=== PATIENT | female | born 1950 | race Caucasian/White ===

== ENCOUNTER → 2016-08-03 | Outpatient (CLI) | payer OTHER ==
[2016-08-03 13:31] LABS: BASO % 0.4 %; BASO ABS # 0.03 K/uL (0-0.2); COMPLETE YES; EOS % 2.5 %; HEMATOCRIT 41.7 % (37-47); IG% 0.3 %; LYMPH % 30.4 %; LYMPH ABS # 2.35 K/uL (1.2-3.4); MEAN CELL VOLUME 86.9 fL (80-100); MEAN CORPUSCULAR HGB CONC 33.3 g/dl (32-36); MEAN PLATELET VOLUME 8.7 fL (7.4-10.4); MONO % 5.6 %; NEUT % 60.8 %; PLATELET COUNT 254 K/uL (130-400); WHITE BLOOD COUNT 7.72 K/uL (4.8-10.8)
[2016-08-03 13:49] LABS: ALT/SGPT 21 U/L (12-78); AST/SGOT 11 U/L (15-37); BLOOD UREA NITROGEN 13 mg/dl (7-18); BUN/CREATININE RATIO 21.7 (10-20); CALCIUM 9.3 mg/dl (8.5-10.1); CARBON DIOXIDE 30 mmol/L (21-32); CHLORIDE 101 mmol/L (98-107); CHOLESTEROL 219 mg/dl (0-200); CREATININE 0.58 mg/dl (0.60-1.20); GLUCOSE 107 mg/dl (70-99); POTASSIUM 3.9 mmol/L (3.5-5.1); SODIUM 136 mmol/L (136-145)
[2016-08-03 13:58] LABS: ALKALINE PHOSPHATASE 93 U/L (45-117); CHOLESTEROL/HDL RATIO 4.8; HDL CHOLESTEROL 46 mg/dl; LDL CHOLESTEROL CALCULATED 147 mg/dl; TRIGLYCERIDES 128 mg/dl (0-150); VERY LOW DENSITY LIPOPROT CALC 26 mg/dl
== END | disposition home or self-care (01) ==
LOC: C.LABMFLN 11:44
PROVIDERS: ATTEND Family Medicine
DX: I10 Essential (primary) hypertension (principal); E78.5 Hyperlipidemia, unspecified; E03.9 Hypothyroidism, unspecified

== ENCOUNTER → 2017-08-19 | Outpatient (CLI) | payer OTHER ==
[2017-08-19 18:04] LABS: ALBUMIN 3.6 gm/dl (3.4-5.0); BLOOD UREA NITROGEN 15 mg/dl (7-18); CALCIUM 9.4 mg/dl (8.5-10.1); CARBON DIOXIDE 30 mmol/L (21-32); CHOLESTEROL 217 mg/dl (0-200); CREATININE 0.62 mg/dl (0.60-1.20); GLUCOSE 108 mg/dl (70-99); POTASSIUM 3.8 mmol/L (3.5-5.1); SODIUM 136 mmol/L (136-145)
[2017-08-19 18:12] LABS: ALKALINE PHOSPHATASE 88 U/L (45-117); ALT/SGPT 22 U/L (12-78); AST/SGOT 12 U/L (15-37); LDL CHOLESTEROL CALCULATED 148 mg/dl; TOTAL PROTEIN 6.9 gm/dl (6.4-8.2)
== END | disposition home or self-care (01) ==
LOC: C.LABMFLN 13:34
PROVIDERS: ATTEND Family Medicine
DX: I10 Essential (primary) hypertension (principal); E78.5 Hyperlipidemia, unspecified; E03.9 Hypothyroidism, unspecified

== ENCOUNTER → 2017-08-20 | Outpatient (CLI) | payer OTHER ==
[2017-08-20 18:46] LABS: BASO % 0.2 %; BASO ABS # 0.02 K/uL (0-0.2); EOS % 0.9 %; EOS ABS # 0.08 K/uL (0-0.5); HEMATOCRIT 43.1 % (37-47); HEMOGLOBIN 14.2 g/dL (12.0-16.0); IG# 0.03 K/uL (0.00-0.02); LYMPH % 25.1 %; LYMPH ABS # 2.14 K/uL (1.2-3.4); MEAN CELL VOLUME 89.8 fL (80-100); MEAN CORPUSCULAR HEMOGLOBIN 29.6 pg (25-34); MEAN CORPUSCULAR HGB CONC 32.9 g/dl (32-36); MEAN PLATELET VOLUME 8.9 fL (7.4-10.4); MONO % 5.5 %; MONO ABS # 0.47 K/uL (0.11-0.59); NEUT % 67.9 %; NEUT ABS # 5.78 K/uL (1.4-6.5); PLATELET COUNT 265 K/uL (130-400); RED CELL DISTRIBUTION WIDTH CV 13.4 % (11.5-14.5); WHITE BLOOD COUNT 8.52 K/uL (4.8-10.8)
== END | disposition home or self-care (01) ==
LOC: C.LABMFLN 16:52
PROVIDERS: ATTEND Family Medicine
DX: E03.9 Hypothyroidism, unspecified (principal); E78.5 Hyperlipidemia, unspecified; I10 Essential (primary) hypertension

== ENCOUNTER → 2017-08-26 | Outpatient (CLI) | payer OTHER | END | disposition home or self-care (01) | LOC: C.MAMM 15:39 | PROVIDERS: ATTEND Family Medicine | DX: Z78.0 Asymptomatic menopausal state (principal); M85.88 Other specified disorders of bone density and structure, other site ==

== ENCOUNTER 2018-07-02 06:28 | Inpatient (IN) ==
--- NOTE | 2018-05-23 14:38 | Anesthesiology Consultation ---
Date of Service May 23, 2018 Assessment & Plan (1) Encounter for pre-operative examination: Chart Review Chart Review: Acceptable Risk for Surgery (PENDING PREOP TESTING) and Patient seen in Pre Admission Testing Teaching & Discussion Pre-Anesthesia Teaching/Discussion Notes: Instructed NPO after midnight before surgery,except medications with 15 cc of water. Medication instructions provided according to the PAT guidelines. History Surgery Operation Date: 07/02/18 12:40 Proposed Procedures p Right Total Knee Arthroplasty - Mk Carrillo MD Height/Weight Height: 5 ft 1.5 in Weight: 104.4 kg Allergies Allergy/AdvReac Type Severity Reaction Status Date / Time Penicillins Allergy Unknown Hives Verified 05/16/18 11:02 Medications Home Medications Medication Instructions Recorded Confirmed Last Taken ascorbic acid (vitamin C) [Vitamin 500 mg PO QPM 05/16/18 05/16/18 Unknown C] aspirin [Aspir-81] 81 mg PO QAM 05/16/18 05/16/18 Unknown benazepril-hydrochlorothiazide 1 tab PO QAM 05/16/18 05/16/18 Unknown [Lotensin HCT] calcium carbonate [Calcium 500] 1,000 mg PO UD 05/16/18 05/16/18 Unknown cholecalciferol (vitamin D3) 1,000 unit PO QPM 05/16/18 05/16/18 Unknown [Vitamin D3] clobetasol 1 applic TOPICAL BID PRN 05/16/18 05/16/18 Unknown coenzyme Q10 [Co Q-10] 100 mg PO HS 05/16/18 05/16/18 Unknown levothyroxine 25 mcg PO QAM 05/16/18 05/16/18 Unknown magnesium oxide 500 mg PO QPM 05/16/18 05/16/18 Unknown multivitamin 1 tab PO QPM 05/16/18 05/16/18 Unknown nystatin-triamcinolone 1 applic TOPICAL BID PRN 05/16/18 05/16/18 Unknown omega 3,6,9 combination no.7 1 tab PO QAM 18 05/16/18 Unknown omeprazole 10 mg PO QAM 18 05/16/18 Unknown peg 400-propylene glycol (PF) 1 drp OPHTHALMIC (EYE) BID PRN 05/16/18 05/16/18 Unknown [Systane (PF)] Past Medical History Medical History GERD (gastroesophageal reflux disease) CONTROLLED History of neuropathy FEET History of tremor HANDS Hyperlipidemia Hypertension Hypothyroidism Morbid obesity Osteoarthritis Past Family History Family History Brother Family history of diabetes mellitus Grandmother (Maternal) Family history of diabetes mellitus Grandmother (Paternal) Family history of diabetes mellitus Grandfather (Paternal) Family history of diabetes mellitus Past Surgical History Surgical History History of cataract surgery B/L History of tonsillectomy Hx of foot surgery R FOOT (BONE SPUR EXCISION) Hx of lipoma REMOVAL Past Anesthesia History No Hx of Anesthesia Complications Mother- post-op hallucinations History of PONV No Motion Sickness Screening History of Motion Sickness: No Social History Smoking Status: Former smoker tobacco type: cigarettes Do You Dip or Chew Tobacco: No Smoking End Date: QUIT 1974 Hx Alcohol Use: Yes Alcohol type: wine and hard liquor alcohol intake frequency: holidays/special occasions only Hx Substance Use: No Exercise / Class Metabolic Activity III < 4 Walking/Shop/Light housework Review of Systems Patient denies chest pain, shortness of breath, cough, wheezing, palpitations. Physical Exam Vital Signs VITALS BP 164/77 P 62 TEMP 97.8 SP02 96%RA RESP 18 Full neck and c-spine range of motion. Full TMJ range of motion. TMD 3 finger breaths Mallampati Score 1 Dentition: upper front bridge, several missing molars Lungs: clear throughout to auscultation Cardiac: regular rate and rhythm, no murmurs noted Spine: normal Carotid arteries: negative bruit Extremities: no edema Testing Chest X-Ray Date: 05/23/18 Findings: + NAD
--- NOTE | 2018-05-23 14:39 | PAT Medication Instructions ---
Medication Instructions Date of Service May 23, 2018 Home Medications ascorbic acid (vitamin C) [Vitamin 500 mg PO QPM aspirin [Aspir-81] 81 mg PO QAM benazepril-hydrochlorothiazide 1 tab PO QAM calcium carbonate [Calcium 500] 1,000 mg PO UD cholecalciferol (vitamin D3) 1,000 unit PO QPM clobetasol 1 applic TOPICAL BID PRN coenzyme Q10 [Co Q-10] 100 mg PO HS levothyroxine 25 mcg PO QAM magnesium oxide 500 mg PO QPM multivitamin 1 tab PO QPM nystatin-triamcinolone 1 applic TOPICAL BID PRN omega 3,6,9 combination no.7 1 tab PO QAM omeprazole 10 mg PO QAM peg 400-propylene glycol (PF) 1 drp OPHTHALMIC (EYE) BID PRN STOP taking 2 weeks before surgery (or as soon as possible if surgery is within 2 weeks) coenzyme Q10 [Co Q-10] 100 mg PO HS omega 3,6,9 combination no.7 1 tab PO QAM STOP taking 24 hours before surgery clobetasol 1 applic TOPICAL BID PRN nystatin-triamcinolone 1 applic TOPICAL BID PRN DO NOT take the morning of surgery benazepril-hydrochlorothiazide 1 tab PO QAM calcium carbonate [Calcium 500] 1,000 mg PO UD Take morning of surgery With a small sip of water, OTHERWISE NOTHING TO EAT OR DRINK AFTER MIDNIGHT: aspirin [Aspir-81] 81 mg PO QAM levothyroxine 25 mcg PO QAM omeprazole 10 mg PO QAM peg 400-propylene glycol (PF) 1 drp OPHTHALMIC (EYE) BID PRN (if needed) Take evening before surgery ascorbic acid (vitamin C) [Vitamin 500 mg PO QPM calcium carbonate [Calcium 500] 1,000 mg PO UD cholecalciferol (vitamin D3) 1,000 unit PO QPM magnesium oxide 500 mg PO QPM multivitamin 1 tab PO QPM peg 400-propylene glycol (PF) 1 drp OPHTHALMIC (EYE) BID PRN (if needed) Other Notes If you have any questions please call us at [phone] or [phone] or [phone] or [phone]
--- NOTE | 2018-05-23 15:37 | XRay Report ---
XR chest Pre-admission PA/Lat CLINICAL HISTORY: pat COMPARISON STUDY: No previous studies for comparison. FINDINGS: The bones soft tissues and hemidiaphragms are normal. The cardiomediastinal silhouette is n ormal. The lungs are clear. The pulmonary vasculature is normal. IMPRESSION: Negative chest. The above report was generated using voice recognition software. It may contain grammatical, syntax or spelling errors. Electronically signed by: Donn Ng M.D. 05/23/2018 3:36 PM
[2018-05-23 16:02] LABS: Basophils # (auto) 0.02 K/uL (0-0.2); Basophils % (auto) 0.2 %; Eosinophils # (auto) 0.11 K/uL (0-0.5); Eosinophils % (auto) 1.3 %; Hematocrit (blood only) 41.1 % (37-47); Hemoglobin 13.4 g/dL (12.0-16.0); Immature Granulocytes # (auto) 0.02 K/uL (0.00-0.02); Immature Granulocytes % (auto) 0.2 %; Lymphocytes # (auto) 2.58 K/uL (1.2-3.4); Lymphocytes % (auto) 31.2 %; Mean Corpuscular Hgb Conc 32.6 g/dL (32-36); Mean Corpuscular Volume 90.1 fL (80-100); Mean Platelet Volume 9.1 fL (7.4-10.4); Monocytes # (auto) 0.47 K/uL (0.11-0.59); Monocytes % (auto) 5.7 %; Neutrophils # (auto) 5.08 K/uL (1.4-6.5); Neutrophils % (auto) 61.4 %; Platelet Count 249 K/uL (130-400); RDW Coefficient of Variation 13.6 % (11.5-14.5); RDW Standard Deviation 44.8 fL (36.4-46.3); Red Blood Count 4.56 M/uL (4.2-5.4); White Blood Count 8.28 K/uL (4.8-10.8)
[2018-05-23 16:11] LABS: Albumin Level 3.5 gm/dl (3.4-5.0); BUN Creatinine Ratio 26.7 (10-20); Calcium 9.4 mg/dl (8.5-10.1); Est GFR (Non-African American) 96.6; Potassium 4.5 mmol/L (3.5-5.1)
[2018-05-23 16:12] LABS: INR 1.1 (0.9-1.1); Partial Thromboplastin Time 25.1 Seconds (21.0-31.0); Prothrombin Time 10.9 Seconds (9.0-12.0)
[2018-05-23 16:15] LABS: Estimated Average Glucose 103 mg/dl
--- NOTE | 2018-07-01 12:39 | History and Physical Report ---
DATE OF ADMISSION: 07/02/2018 CHIEF COMPLAINT: Chronic right knee pain. HISTORY OF PRESENT ILLNESS: This is a 68-year-old female patient of Dr. Jo complaining of chronic right knee pain, longstanding, now progressively getting worse. The patient has been diagnosed with end-stage osteoarthritis per clinical and radiographic exams. The patient has failed conservative treatment including intraarticular injections that being steroids and viscosupplementation. She has failed the use of a cane as well as a home exercise program. The patient has increased pain with weightbearing activities and her pain does interfere with her activities of daily living. PAST MEDICAL HISTORY: Hypertension, hypercholesterolemia, peripheral neuropathy nondiabetic related, hypothyroidism, acid reflux, obesity. She does have dental bridge. SOCIAL HISTORY: Nonsmoker, nondrinker. PAST SURGICAL HISTORY: Hip lipoma, tonsillectomy, foot surgery. FAMILY HISTORY: Noncontributory. REVIEW OF SYSTEMS: Chronic right knee pain; otherwise, denies any shortness of breath, chest pain, nausea, vomiting or any other joint complaints. MEDICATIONS: Lotensin/hydrochlorothiazide 10/12.5 daily, omeprazole 10 mg daily, levothyroxine 25 mcg daily, multivitamin daily, CoQ10 daily, Zyrtec 10 mg daily, calcium daily, aspirin 81 mg daily. ALLERGIES: PENICILLIN. PHYSICAL EXAMINATION: GENERAL: Well-developed, well-nourished 68-year-old female, in no acute distress. She is alert and oriented x3 and pleasant. HEENT: Normocephalic, atraumatic. Extraocular motions are intact. Pupils equal, reactive to light. HEART: Regular rate and rhythm. No murmurs. LUNGS: Clear. ABDOMEN: Soft, nontender, bowel sounds present. EXTREMITIES: Right knee reveals a varus deformity with medial joint line tenderness. She has a mild effusion with a positive Brent's. Range of motion negative 10-130 degrees, 4/5 strength. NEUROLOGIC: Neurovascularly, she is intact in her right lower extremity. DIAGNOSES: Right knee end-stage osteoarthritis, hypertension, hypercholesterolemia, peripheral neuropathy nondiabetic, hypothyroidism, acid reflux and obesity. PLAN: The patient was advised of her diagnosis. Indications, risks, benefits, postop course have all been reviewed. The patient wished to proceed with a right total knee arthroplasty. Necessary consent forms, preoperative testing and clearances will be obtained.
[~2018-07-02 06:28] MED LIST: ACETAMINOPHEN 500 MG TAB PO SCH; BUPIVACAINE 0.5 % 5 MG/1 ML PF 10ML VIAL ONE; CeleBREX 200 MG CAP PO SCH; FAMOTIDINE 20 MG TAB PO SCH; GABAPENTIN 300 MG PO SCH; METOCLOPRAMIDE HCL 10 MG TABLET PO SCH; ROPIVACAINE 0.5% 5 MG/ML 30 ML VIAL ONE; ROPIVACAINE 0.5% HCL/PF 150 MG, BUPIVACAINE 0.5% MPF 30 ML, EPINEPHrine 30MG/30ML (OR U... INFIL SCH; TRANEXAMIC ACID 1,000 MG **IV Pre-op IV SCH; VANCOMYCIN HCL 1,500 MG in SODIUM CHLORIDE 0.9% 500 ML IV SCH; dexAMETHasone 4 MG TAB PO SCH
[2018-07-02] MEDS ORDERED: TRANEXAMIC ACID 1,000 MG **IV Intra-op IV SCH (06:30)
[2018-07-02] MEDS: LR 500ML BOLUS, THEN 15ML/HR IV SCH ×4 (07:00→23:24)
[2018-07-02] MEDS ORDERED: MIDAZOLAM HCL 1 MG/ML 2ML VIAL ONE ×2 (07:10→09:09)
--- NOTE | 2018-07-02 07:10 | History & Physical Bridge Note ---
Date of Service July 02, 2018 History & Physical Bridge Note I have examined the patient, reviewed the History & Physical and in the interval since the performance of the History & Physical I have noted the following changes of clinical significance: no changes noted
[2018-07-02] MEDS ORDERED: ORTHO JOINT ANESTHETIC ONE (08:15)
[2018-07-02] MEDS ORDERED: POVIDONE-IODINE OP SOLN 30 ML BTL ONE (08:15)
[2018-07-02] MEDS ORDERED: BACITRACIN INJ 50,000 UNIT VIAL ONE (08:15)
[2018-07-02] MEDS ORDERED: ATROPINE SULFATE 0.1 MG/ML 10ML SYR IV PRN (09:01)
[2018-07-02] MEDS ORDERED: ePHEDrine sulfate 50 MG/ML AMP IV PRN (09:01)
[2018-07-02] MEDS ORDERED: PROPOFOL IV EMULSION 10 MG/ML 20 ML VIAL IV ONE ×2 (09:26→10:13)
[2018-07-02] MEDS ORDERED: ePHEDrine sulfate 50 MG/ML SYR ONE (09:26)
[2018-07-02] MEDS ORDERED: LIDOCAINE HCL 2% 2 ML VIAL/AMP(20MG/ML) INFIL ONE (09:26)
--- NOTE | 2018-07-02 10:33 | Post Operative Brief Note ---
Immediate Post Op Note v1 Date of Surgery July 02, 2018 Pre & Post Diagnosis Operation Date: 07/02/18 08:50 Pre-Op Diagnosis: Right Knee Osteoarthritis Post-Op Diagnosis: Right Knee Osteoarthritis Procedure Operation Date: 07/02/18 08:50 Actual Procedures p Right Total Knee Arthroplasty(Right) - Mk Carrillo MD Surgeon Mk Carrillo MD Data Warehouse Analyst Jorge MERLOS Estimated Blood Loss 5 Findings Consistent with Post-Op Diagnosis Specimens Bone cuts Drains Hemovac Drain (10 fr dual) Anesthesia Type Spinal MAC Complications none Disposition Accompanied Patient To Recovery: No Disposition: Recovery Room Overlapping Procedure I was present for: the critical portions of procedure.
--- NOTE | 2018-07-02 11:27 | XRay Report ---
XR knee RT 2V routine CLINICAL HISTORY: 68 years-old Female presenting with Surgical Post Op. TECHNIQUE: Frontal and lateral views of the right knee were obtained. COMPARISON: None. FINDINGS: Post surgical changes of total right knee arthroplasty with patellar resurfacing. Expected intra-echo cular and soft tissue emphysema. A surgical drain is in place. No malalignment of the arthroplasty lugo rdware. No periprosthetic fracture. Underlying osteopenia may be present. IMPRESSION: Expected postsurgical appearance status post total right knee arthroplasty with patellar resurfacing. Electronically signed by: Dean Hale M.D. 07/02/2018 11:26 AM
--- NOTE | 2018-07-02 11:39 | Anesthesiology Progress Note ---
Date of Service July 02, 2018 Anesthesia Post Procedure Vital Signs Vital Signs: Temp Pulse Pulse Resp BP Pulse Ox 07/02/18 11:25 75 16 131/64 98 07/02/18 11:15 36.4 C L 68 19 129/61 98 07/02/18 11:05 68 15 129/62 95 07/02/18 10:59 36.6 C 77 16 134/62 97 07/02/18 07:32 36.7 C 74 20 198/82 H 96 Notes Mental Status: alert / awake / arousable and participated in evaluation Patient Amnestic to Procedure: Yes Nausea / Vomiting: adequately controlled Pain: adequately controlled Airway Patency, RR, SpO2: stable & adequate BP & HR: stable & adequate Hydration State: stable & adequate Neuraxial Anesthesia: was administered and sensory block is resolving Anesthetic Complications: no major complications apparent
[2018-07-02] MEDS ORDERED: HYDROmorphone INJ 0.5 MG/0.5 ML SYR IV PRN (12:10)
[2018-07-02] MEDS ORDERED: VANCOMYCIN CONSULT ACTIVE PRN (12:10)
[2018-07-02] MEDS ORDERED: NALOXONE HCL 0.4 MG/1 ML VIAL/CARP IV PRN (12:10)
[2018-07-02] MEDS ORDERED: ALUMINUM/MAGNESIUM SUSP 30 ML UDC PO PRN (12:10)
[2018-07-02] MEDS ORDERED: BISACODYL 10 MG SUPP PR PRN (12:10)
[2018-07-02] MEDS ORDERED: MAGNESIUM HYDROXIDE SUSP 30 ML UDC PO PRN (12:10)
[2018-07-02] MEDS ORDERED: ONDANSETRON INJ 2 MG/ML 2 ML VIAL IV PRN (12:10)
[2018-07-02] MEDS: SODIUM CHLORIDE 0.9% 1000ML 1,000 ML IV SCH (13:21)
[2018-07-02] MEDS: ACETAMINOPHEN 500 MG TAB PO SCH ×2 (14:02→22:26)
--- NOTE | 2018-07-02 18:36 | Operative Report ---
Post Operative Report Pre & Post Diagnosis Operation Date: 07/02/18 08:50 Pre-Op Diagnosis: Right Knee Osteoarthritis Post-Op Diagnosis: Right Knee Osteoarthritis Procedure Operation Date: 07/02/18 08:50 Actual Procedures p Right Total Knee Arthroplasty(Right) - Mk Carrillo MD Surgeon Mk Carrillo MD Button Bradder Jorge MERLOS Estimated Blood Loss 5 Findings Consistent with Post-Op Diagnosis Specimens Bone cuts Drains 2 Hemovac Anesthesia Type Spinal MAC Complications none Disposition Accompanied Patient To Recovery: No Disposition: Recovery Room Indications 68-year-old female progressive osteoarthritis in her right knee. She has grade 4 patellofemoral and medial compartment osteoarthritis with a varus knee. Description of Procedure Patient taken to the operating room placed supine on the operating table and anesthetized under spinal MAC anesthesia. Exam under anesthesia demonstrated 0 through 130 degrees range of motion varus knee no instability patellofemoral crepitation. A pneumatic tourniquet was placed about the obese thigh of the right lower extremity. The right lower extremity was prepped and draped in usual fashion. Leg was elevated exsanguinated with an Esmarch bandage and the pneumatic was raised to 350 mm mercury. An anterior incision was made across the right knee. The skin was incised longitudinally subcutaneous flaps were elevated and an incision was made through the medial retinaculum extending up into the mid third of the quadriceps tendon and extended down to the medial tibial tubercle. Intra-articular findings demonstrated tricompartmental DJD [id number] medial patellofemoral joint and medial compartment. The knee was exposed by excising the infrapatellar fat pad, excising the meniscal remnants and cruciate ligaments or remnants of the ligaments. Any inflamed synovial tissue was resected. The fat pad over the anterior femur was resected for placement of the component in that area. The lateral synovial bands were release. Appropriate releases were performed to balance ligaments. The femur was exposed. The custom femoral cutting block was pinned in position. The distal femoral cutting block was applied. The distal femoral cut was made with the oscillating saw. The size 6 4-in-1 cutting block was placed. The anterior and posterior chamfer cuts were made. The knee was extended and a subperiosteal peel lateral release was performed around the patella. The patella width was measured and width was reproduced using freehand cut technique. The 29 x 8 millimeter symmetrical patella was used. 3 drill holes are made for the pegs. The tibia was exposed. A custom tibial cutting block was positioned and drill holes were made for the cutting guide. Cutting guide was placed and the proximal cut was made with the oscillating saw. All osteophytes were resected. The lamina mechanic helper was used to assess ligamentous balance and the ligaments were balanced in extension and flexion. The tibia was reexposed and measured for a size C tibial component. This was externally rotated in line with the tibial tubercle and the fixation pins were drilled. The proximal tibia was fashioned with the drill and punch. The size 6 CR femoral trial was inserted. The trial MC inserts were used. The 12 mm insert gave balanced ligaments through full range of motion. The patella tracked centrally. the trials were removed. The orthomix anesthetic cocktail was injected per protocol. The knee was then copiously irrigated with pulsatile lavage antibiotic solution with bacitracin. The final components were cemented with Simplex cement. The final components were 6 narrow right persona [employer] CR femoral component with a C tibia with a 12 medial congruent polyethylene and a 29 x 8 mm symmetrical patella. While the cement cured with the knee in full extension the Betadine soak was used per protocol. After the cement cured, the knee joint was copiously irrigated with antibiotic solution with bacitracin. 2 drains were brought out laterally and connected to a Hemovac. The quadriceps tendon and medial retinaculum were closed with interrupted [id number] #1 Vicryl sutures. The knee was taken through a full range of motion and repair was secure. The subcutaneous tissues were closed with 2-0 Vicryl sutures and skin was closed with zip line. Sterile dressings were applied and the patient tolerated the procedure well. Jorge MERLOS my physician assistant analyst, assisted in soft tissue retraction instrument management leg positioning the closure and will participate in the postoperative care of the patient. I attest to the content of the Intraoperative Record and any orders documented therein. Any exceptions are noted below.
[2018-07-02] MEDS ORDERED: VANCOMYCIN HCL 1,500 MG in SODIUM CHLORIDE 0.9% 500 ML IV SCH (20:00)
[2018-07-02] MEDS: ASPIRIN 81 MG ECTAB PO SCH (20:18)
[2018-07-02] MEDS: MAGNESIUM OXIDE 400 MG TAB PO SCH (20:18)
[2018-07-02] MEDS: DOCUSATE SODIUM 100 MG CAP PO SCH (20:19)
[2018-07-02] MEDS: OXYCODONE HCL IR 5 MG TAB (IMMEDIATE RELEASE) PO PRN (20:19)
[2018-07-02] MEDS: MULTIVITAMIN TAB PO SCH (20:19)
[2018-07-02] MEDS: SENNA 8.6 MG TAB PO SCH (20:19)
[2018-07-02] MEDS ORDERED: NON-FORMULARY MEDICATION (Coenzyme Q10 [Co Q-10] 100 MG) PO SCH (21:00)
[2018-07-02] MEDS ORDERED: SYSTANE ULTRA OP PRN (21:00)
[2018-07-03] MEDS: OXYCODONE HCL IR 5 MG TAB (IMMEDIATE RELEASE) PO PRN ×6 (00:35→22:30)
[2018-07-03] MEDS ORDERED: Nursing to Pharmacy Communication ONE (03:29)
[2018-07-03] MEDS: SODIUM CHLORIDE 0.9% 1000ML 1,000 ML IV SCH (03:46)
[2018-07-03] MEDS: ACETAMINOPHEN 500 MG TAB PO SCH ×3 (05:38→22:31)
[2018-07-03] MEDS: LEVOTHYROXINE SODIUM 25 MCG TABLET PO SCH (05:38)
[2018-07-03 07:15] LABS: Hematocrit (blood only) 35.6 % (37-47); Hemoglobin 11.9 g/dL (12.0-16.0); Mean Corpuscular Hgb Conc 33.4 g/dL (32-36); Mean Corpuscular Volume 89.4 fL (80-100); Mean Platelet Volume 8.5 fL (7.4-10.4); Platelet Count 208 K/uL (130-400); RDW Coefficient of Variation 13.3 % (11.5-14.5); RDW Standard Deviation 43.4 fL (36.4-46.3); Red Blood Count 3.98 M/uL (4.2-5.4); White Blood Count 12.92 K/uL (4.8-10.8)
[2018-07-03 07:53] LABS: BUN Creatinine Ratio 25.8 (10-20); Calcium 8.8 mg/dl (8.5-10.1); Creatinine Clr Calc Pharmacy 112.4 ml/min; Est GFR (African American) 113.3; Est GFR (Non-African American) 97.7
[2018-07-03] MEDS: ENALAPRIL MALEATE 10 MG TAB PO SCH (08:12)
[2018-07-03] MEDS: DOCUSATE SODIUM 100 MG CAP PO SCH ×2 (08:13→20:40)
[2018-07-03] MEDS: hydroCHLOROthiazide 25 MG TAB PO SCH (08:15)
[2018-07-03] MEDS: PANTOprazole 40 MG TAB PO SCH (08:15)
[2018-07-03] MEDS: ASPIRIN 81 MG ECTAB PO SCH ×2 (08:15→20:40)
--- NOTE | 2018-07-03 08:34 | Orthopedic Progress Note ---
Date of Service July 03, 2018 Assessment & Plan (1) Right knee DJD: POD #1 Right TKA PT/ OT DVT proph- ASA D/C planning- Home w HH Subjective POD #1, Doing well, Denies SOB, CP, N/V, pain controlled well. Physical Exam 2 Vital Signs (Past 24 Hours): Last Vital Signs Temp 36.4 C L 07/03/18 07:30 Pulse 63 07/03/18 07:30 Resp 18 07/03/18 07:30 BP 172/77 H 07/03/18 07:30 Pulse Ox 97 07/03/18 07:30 Physical Exam: Right knee dressings c/d/i, no drainage, toes and ankle mobile , no calf tenderness, A&Ox3.
[2018-07-03] MEDS ORDERED: MULTIVITAMIN TAB PO SCH (09:00)
[2018-07-03] MEDS: MAGNESIUM OXIDE 400 MG TAB PO SCH (20:40)
[2018-07-03] MEDS: MULTIVITAMIN TAB PO SCH (20:40)
[2018-07-03] MEDS: SENNA 8.6 MG TAB PO SCH (20:40)
[2018-07-04 00:30] VITALS: TEMP 97.9; O2SAT 95
[2018-07-04] MEDS: OXYCODONE HCL IR 5 MG TAB (IMMEDIATE RELEASE) PO PRN ×3 (03:51→12:16)
[2018-07-04] MEDS: LEVOTHYROXINE SODIUM 25 MCG TABLET PO SCH (05:32)
[2018-07-04] MEDS: ACETAMINOPHEN 500 MG TAB PO SCH (05:32)
--- NOTE | 2018-07-04 08:06 | Orthopedic Progress Note ---
Date of Service July 04, 2018 Assessment & Plan (1) Right knee DJD: POD #2 Right TKA PT/ OT DVT proph- ASA D/C planning- Home w HH today Subjective POD #2, Doing well, Denies SOB, CP, N/V, pain controlled well. Physical Exam 2 Vital Signs (Past 24 Hours): Last Vital Signs Temp 36.6 C 07/03/18 23:12 Pulse 59 L 07/03/18 23:12 Resp 16 07/03/18 23:12 BP 132/74 07/03/18 23:12 Pulse Ox 95 07/03/18 23:12 Physical Exam: Right knee silverlon c/d/i, no drainage, toes mobile, no calf tenderness, A&Ox3.
[2018-07-04] MEDS: ASPIRIN 81 MG ECTAB PO SCH (08:09)
[2018-07-04] MEDS: DOCUSATE SODIUM 100 MG CAP PO SCH (08:09)
[2018-07-04] MEDS: PANTOprazole 40 MG TAB PO SCH (08:10)
[2018-07-04] MEDS: ENALAPRIL MALEATE 10 MG TAB PO SCH (08:12)
[2018-07-04] MEDS: hydroCHLOROthiazide 25 MG TAB PO SCH (08:12)
[2018-07-04 10:44] VITALS: BP 132/74; PULSE 71
--- NOTE | 2018-07-09 23:32 | Discharge Summary ---
DISCHARGE DIAGNOSIS: Degenerative joint disease, right knee. SECONDARY DIAGNOSES: Hypertension, hypercholesterolemia, peripheral neuropathy, nondiabetic-related hypothyroidism, GERD, obesity. CONSULTS: None. COMPLICATIONS: None. PROCEDURES: Right total knee arthroplasty performed by Dr. Carrillo on 07/02/2018. BRIEF HISTORY: As dictated in the history and physical. HOSPITAL SUMMARY: The patient was admitted on the above-noted date and had the above-named surgery performed, which she tolerated well. On the first postoperative day, the patient was doing well without complaints. Pain was controlled. Vital signs were stable with a noted SBP being elevated at 172. Right knee dressings were clean, dry, and intact. There is no drainage. Toes and ankles were mobile. No calf tenderness and the patient was started on physical therapy protocol and continued on DVT prophylaxis and pain management. By the second postoperative day, patient was doing well, continued to have no complaints and pain was controlled. Blood pressure was better at 132/74 and other vital signs were stable. The patient was afebrile. Silverlon dressing was intact. Toes were mobile. Calves were nontender. The patient was progressing with physical therapy and it was felt that he could be discharged to home with home health services on 07/04/2018. For further review, please see chart. LABORATORY AND X-RAY DATA: As per chart. DISCHARGE INSTRUCTIONS: The patient was discharged to home in satisfactory condition on 07/04/2018. DIET: Regular. ACTIVITY: Weightbearing as tolerated on the right lower extremity. Follow TK instruction sheets and special care instructions as noted. Follow up with Dr. Carrillo in 2 weeks. The patient to call for appointment if one has not been made for you. DISCHARGE MEDICATIONS: Acetaminophen 1000 mg p.o. q. 8 hours, aspirin 81 mg p.o. b.i.d., oxycodone 5 mg p.o. q. 4 hours p.r.n., and resume home meds as listed. Stop taking previous aspirin dosage and [place] 3 tablets.
== END 2018-07-04 13:00 | disposition home health service (06) | DRG 470 ==
LOC: ASU 06:28 → 3E 11:07

== ENCOUNTER 2019-12-16 14:41 | Inpatient (IN) ==
--- NOTE | 2019-12-16 14:45 | Emergency Department Note ---
Impression & Plan Non-ST elevation myocardial infarction (NSTEMI), Chest pain ED Provider Note NAME: RAYMOND GALAVIZ AGE: 69 SEX: F : 1950 ARRIVES VIA: Ambulance INFORMANT: Patient, ED PROVIDER(S): John Bautista MD Chief Complaint: Chest pain HPI: Patient did remark that during water aerobics on Saturday the patient did have some chest pressure and pain. The patient states that this dissipated. The patient did present to her outpatient physician's office today with a obtained an EKG and noted that she had some T wave inversions. The patient does endorse that she did have some exertional chest pressure today. The patient denies any nausea vomiting or diaphoresis. The patient describes her exertional chest discomfort today is count of a burning at the top of the chest. Patient did receive full dose aspirin. Patient is currently asymptomatic. Former smoker 45 years ago. The patient denies history of DVT or PE. The patient does have some residual leg swelling but nothing that is changed. The patient denies any history of heart failure. Patient does have family history of heart disease in father and brother who had heart attacks before the age of 65. ROS: See HPI for pertinent positives and negatives. A total of 10 systems were reviewed and otherwise negative. Past medical history: See below Surgical history: See below Social history: See below Physical Exam: GENERAL: Well appearing, well nourished, NAD, non-toxic. Wearing a mask and glasses. EYE EXAM: Normal conjunctiva. PERRL, no anisocoria and EOM's grossly intact w/o pain. NECK: Supple, no nuchal rigidity, no adenopathy, non-tender. No signs of meningismus. LUNGS: Clear to auscultation. Normal chest wall mechanics. HEART: NSR, no MRG. ABDOMEN: Abdomen soft, non-tender, normo-active bowel sounds, no masses, no rebound or guarding. BACK: No CVA TTP. SKIN: No rashes and no bruising. UPPER EXTREMITIES: Upper extremities are grossly normal. LOWER EXTREMITIES: Grossly normal, no edema. NEURO EXAM: A&O x3, cranial nerves II-XII grossly intact, normal speech, moves all 4 extremities on command w/o issue. Differential diagnoses: Cardiac ischemia, aortic dissection, pulmonary embolism, pneumothorax, pneumonia, pericarditis, myocarditis, esophageal rupture, GERD, cholecystitis, pancreatitis, musculoskeletal, as well as other pathologies. Course: Patient was seen and evaluated the bedside. Full history physical exam was performed. EKG: Indication: Chest pain Sinus rhythm, rate of 77, normal intervals, normal axis, Q wave in lead III, T wave inversion anteriorly and laterally. No obvious ST segment elevations. These are acute changes from May 23, 2018. Imaging Studies: Radiology results as stated below per my review in the radiologist's interpretation: XR chest 1V portable CLINICAL HISTORY: Chest Pain COMPARISON STUDY: 05/23/2018 FINDINGS: The bones soft tissues and hemidiaphragms are normal. The cardiomediastinal silhouette is normal. The lungs are clear. The pulmonary vasculature is normal. IMPRESSION: Negative chest. ACT 112: Negative or not required by law. The above report was generated using voice recognition software. It may contain grammatical, syntax or spelling errors. Electronically signed by: Donn Ng M.D. 12/16/2019 3:10 PM Dictated: 12/16/19 1509 Transcribed: 12/16/19 1509 Cardiac monitoring: An order was placed for continuous cardiac monitoring. The monitor shows a rate of 77 with sinus rhythm. MDM: Patient does present with chest pain. Patient did receive aspirin. Currently asymptomatic. T wave inversions are notable on the patient's EKG. No current chest pains. Blood work was obtained and as needed nitroglycerin ordered. Patient has a normal white count H&H and platelet count. X-ray is unremarkable. Did speak the on-call hospitalist agreed to further evaluate treat the patient. The patient subsequently mated to the medicine service. PRN nitro was ordered. Patient had normal white count H&H and platelet count. Kidney function is unremarkable. The patient does have a positive troponin at 2.1. No obvious elevations at this time and the patient does not have any active discomfort. Heparin was ordered for an end STEMI. Hospitalist was consulted. The patient was subsequently admitted by Dr. Crenshaw and I did speak with Dr. Moe with cardiology. They are in agreement plan of care at this time. Patient was advised to notify a staff if the patient did have a recurrence of her chest discomfort or pain. Patient understood. Critical Care: I have personally spent 47 minutes of critical care time in direct management of this patient. This includes bedside care, interpretation of diagnostic studies, and testing, discussion with consultants, patient, and family members, and other require inpatient management activities. This 47 minutes is in excess of all separately billable procedures. Past Med/Surg History Medical History Acid reflux disease (Chronic) Allergic rhinitis (Chronic) Benign essential hypertension (Chronic) History of tremor (Chronic) HANDS Hyperlipidemia (Chronic) Hypothyroidism (Chronic) Idiopathic peripheral neuropathy (Chronic) Morbid obesity (Chronic) Osteoarthritis (Chronic) Psoriasis of scalp (Chronic) Vitamin D deficiency (Chronic) Surgical History History of cataract surgery B/L History of tonsillectomy Hx of foot surgery R FOOT (BONE SPUR EXCISION) Hx of lipoma REMOVAL S/P colonoscopy S/P knee replacement Family History Brother Family history of diabetes mellitus Grandmother (Maternal) Family history of diabetes mellitus Grandmother (Paternal) Family history of diabetes mellitus Grandfather (Paternal) Family history of diabetes mellitus Denies family history of Ovarian cancer Prostate cancer Myocardial infarction Breast cancer Colorectal cancer Social History Preferred Language: [place] Islander Communication Ability: Effective Contract Administrator Required: No Beliefs That Will Affect Care: None marital status: Current Living Situation: Spouse Feels Safe at Home: Yes Smoking Status: Former smoker Tobacco Type: cigarettes ; Second Hand Exposure: No ; Hx Alcohol Use: Yes Alcohol type: wine and hard liquor Hx Substance Use: No Allergies Allergies Allergy/AdvReac Type Severity Reaction Status Date / Time Penicillins Allergy Unknown Hives Verified 12/16/19 15:43 Home Meds Home Medications Medication Instructions Recorded Confirmed aspirin 81 mg PO QAM 12/16/19 12/16/19 cetirizine [Zyrtec] 10 mg PO DAILY 12/16/19 12/16/19 cyclobenzaprine 10 mg PO HS 12/16/19 12/16/19 levothyroxine 25 mcg PO QAM 12/16/19 12/16/19 nystatin-triamcinolone 1 applic TOPICAL BID PRN 12/16/19 12/16/19 peg 400-propylene glycol (PF) 1 drp OPHTHALMIC (EYE) BID PRN 12/16/19 12/16/19 [Systane (PF)] Previous Rx's Medication Instructions Recorded clobetasol 0.05 % scalp solution 1 applic TOPICAL BID PRN #50 ml 12/24/18 omeprazole 10 mg capsule,delayed 10 mg PO QAM #90 cap 07/09/19 release benazepril 10 1 tab PO QAM #90 tab 09/16/19 mg-hydrochlorothiazide 12.5 mg tablet Results & Data (ED) Vital Signs Vital Signs - 24 hr 12/16/19 14:50 12/16/19 15:04 12/16/19 15:30 Temperature 37 C Temperature Source Oral Pulse Rate 80 68 66 Pulse Rate from SpO2 Sensor 68 65 Pulse Rhythm Regular Pulse Strength Normal Respiratory Rate 15 19 16 Respiratory Effort / Characteristics Non-Labored Spontaneous Respiratory Depth Normal Respiratory Pattern Regular Blood Pressure 216/110 H 177/95 H Blood Pressure Mean 145 110 Blood Pressure Position Lying Pulse Oximetry 99 99 98 Oxygen Delivery Method Room Air Sepsis Recent Fever Within 48 Hours No Sepsis New/Unexplained Change in Mental Status No Sepsis Action Taken by Nursing No Action Required 12/16/19 16:00 12/16/19 16:30 12/16/19 17:00 Temperature Temperature Source Pulse Rate 72 70 67 Pulse Rate from SpO2 Sensor 71 67 59 L Pulse Rhythm Pulse Strength Respiratory Rate 24 26 H 23 Respiratory Effort / Characteristics Respiratory Depth Respiratory Pattern Blood Pressure Blood Pressure Mean Blood Pressure Position Pulse Oximetry 97 98 98 Oxygen Delivery Method Sepsis Recent Fever Within 48 Hours Sepsis New/Unexplained Change in Mental Status Sepsis Action Taken by Nursing 12/16/19 17:02 12/16/19 17:30 Temperature Temperature Source Pulse Rate 67 64 Pulse Rate from SpO2 Sensor 68 65 Pulse Rhythm Pulse Strength Respiratory Rate 24 22 Respiratory Effort / Characteristics Respiratory Depth Respiratory Pattern Blood Pressure 181/82 H 177/105 H Blood Pressure Mean 112 132 Blood Pressure Position Pulse Oximetry 97 96 Oxygen Delivery Method Room Air Room Air Sepsis Recent Fever Within 48 Hours Sepsis New/Unexplained Change in Mental Status Sepsis Action Taken by Alf Medications Current Medication List: was personally reviewed by me Laboratory Data Attestation: I reviewed the patient's lab results. Result diagrams: 12/16/19 15:04 12/16/19 15:04 Lab Results 07/08/20 07/08/20 07/08/20 Range/Units 15:04 15:04 15:04 WBC 10.52 (4.8-10.8) K/uL RBC 5.17 (4.2-5.4) M/uL Hgb 15.1 (12.0-16.0) g/dL Hct 44.9 (37-47) % MCV 86.8 (80-100) fL MCH 29.2 (25-34) pg MCHC 33.6 (32-36) g/dL RDW Std Deviation 43.9 (36.4-46.3) fL RDW Coeff of Leonarda 13.8 (11.5-14.5) % Plt Count 270 (130-400) K/uL MPV 8.7 (7.4-10.4) fL Immature Gran % (Auto) 0.4 % Neut % (Auto) 67.9 % Lymph % (Auto) 25.9 % [place] % (Auto) 4.6 % Eos % (Auto) 1.0 % Baso % (Auto) 0.2 % Neut # (Auto) 7.15 H (1.4-6.5) K/uL Lymph # (Auto) 2.72 (1.2-3.4) K/uL [place] # (Auto) 0.48 (0.11-0.59) K/uL Eos # (Auto) 0.11 (0-0.5) K/uL Baso # (Auto) 0.02 (0-0.2) K/uL Immature Gran # (Auto) 0.04 H (0.00-0.02) K/uL PT 11.0 (9.0-12.0) Seconds INR 1.0 (0.9-1.1) APTT 26.1 (21.0-31.0) Seconds PTT Ratio 0.9 Sodium 138 (136-145) mmol/L Potassium 3.8 (3.5-5.1) mmol/L Chloride 104 (98-107) mmol/L Carbon Dioxide 29 (21-32) mmol/L Anion Gap 5.0 (3-11) BUN 15 (7-18) mg/dl Creatinine 0.70 (0.6-1.2) mg/dl Est Cr Clr Drug Dosing 93.0 ml/min Est GFR ( Amer) 103.9 Est GFR (Non-Af Amer) 89.7 BUN/Creatinine Ratio 21.9 H (10-20) Glucose 110 H (70-99) mg/dl Calcium 9.6 (8.5-10.1) mg/dl Phosphorus 3.2 (2.5-4.9) mg/dl Magnesium 2.2 (1.8-2.4) mg/dl Total Bilirubin 0.5 (0.2-1) mg/dl AST 32 (15-37) U/L ALT 26 (12-78) U/L Alkaline Phosphatase 102 (45-117) U/L Troponin I 2.180 H* (0-0.045) ng/ml Total Protein 7.9 (6.4-8.2) gm/dl Albumin 4.0 (3.4-5.0) gm/dl Globulin 3.9 (2.5-4.0) gm/dl Albumin/Globulin Ratio 1.0 (0.9-2) Lipase 95 (73-393) U/L 12/16/19 Range/Units 16:53 WBC (4.8-10.8) K/uL RBC (4.2-5.4) M/uL Hgb (12.0-16.0) g/dL Hct (37-47) % MCV (80-100) fL MCH (25-34) pg MCHC (32-36) g/dL RDW Std Deviation (36.4-46.3) fL RDW Coeff of Leonarda (11.5-14.5) % Plt Count (130-400) K/uL MPV (7.4-10.4) fL Immature Gran % (Auto) % Neut % (Auto) % Lymph % (Auto) % [place] % (Auto) % Eos % (Auto) % Baso % (Auto) % Neut # (Auto) (1.4-6.5) K/uL Lymph # (Auto) (1.2-3.4) K/uL [place] # (Auto) (0.11-0.59) K/uL Eos # (Auto) (0-0.5) K/uL Baso # (Auto) (0-0.2) K/uL Immature Gran # (Auto) (0.00-0.02) K/uL PT (9.0-12.0) Seconds INR (0.9-1.1) APTT (21.0-31.0) Seconds PTT Ratio Sodium (136-145) mmol/L Potassium (3.5-5.1) mmol/L Chloride (98-107) mmol/L Carbon Dioxide (21-32) mmol/L Anion Gap (3-11) BUN (7-18) mg/dl Creatinine (0.6-1.2) mg/dl Est Cr Clr Drug Dosing ml/min Est GFR ( Amer) Est GFR (Non-Af Amer) BUN/Creatinine Ratio (10-20) Glucose (70-99) mg/dl Calcium (8.5-10.1) mg/dl Phosphorus (2.5-4.9) mg/dl Magnesium (1.8-2.4) mg/dl Total Bilirubin (0.2-1) mg/dl AST (15-37) U/L ALT (12-78) U/L Alkaline Phosphatase (45-117) U/L Troponin I 2.280 H* (0-0.045) ng/ml Total Protein (6.4-8.2) gm/dl Albumin (3.4-5.0) gm/dl Globulin (2.5-4.0) gm/dl Albumin/Globulin Ratio (0.9-2) Lipase (73-393) U/L Administered Medications Heparin Sodium/Dextrose (Heparin Sodium/Dextrose) 25,000 units in 500 mls @ 18 mls/hr IV .Q24H DAX; Protocol Stop: 01/15/20 15:59 Last Admin: 12/16/19 17:04 Dose: 900 units/hr, 18 mls/hr Documented by: [id number] Cosigned by: [id number] Discontinued Medications Heparin Sodium (Porcine) (Heparin Iv Bolus) Confirm Administered Dose 10,000 units .ROUTE .STK-MED ONE Stop: 12/16/19 16:26 Last Admin: 12/16/19 17:05 Dose: 4,000 units Documented by: [id number] Cosigned by: [id number] Heparin Sodium (Porcine) (Heparin Iv Bolus) 4,000 units IV 1630 DAX Stop: 12/16/19 16:31 Last Admin: 12/16/19 17:08 Dose: Not Given Documented by: [id number] Heparin Sodium/Dextrose () 1 ea IV NOW STA; Protocol Stop: 12/16/19 15:57 Last Admin: 12/16/19 17:08 Dose: Not Given Documented by: [id number] Sodium Chloride (Nss 1000ml) 500 mls @ 999 mls/hr IV .Q31M ONE Stop: 12/16/19 16:46 Last Infusion: 12/16/19 17:55 Dose: 0 mls/hr Documented by: [id number] Admin: 12/16/19 17:08 Dose: 999 mls/hr Documented by: [id number] Metoprolol Tartrate (Lopressor) 25 mg PO ONE STA Stop: 12/16/19 16:23 Last Admin: 12/16/19 17:09 Dose: Not Given Documented by: [id number] Metoprolol Tartrate (Lopressor) 12.5 mg PO ONE STA Stop: 12/16/19 17:44 Last Admin: 12/16/19 17:59 Dose: 12.5 mg Documented by: [id number] Discharge Plan Visit Data *Final* Discharge Date/Time: 12/16/19 18:11 Chief Complaint: Chest Pain ED Provider: John Bautista Discharge Problem: Non-ST elevation myocardial infarction (NSTEMI), Chest pain Patient Disposition: Admitted As Inpatient Discharge Instructions Interventions: ED Discharge Assessment Last Done: 12/16/19 18:11 Discharge Problem: Chest pain Qualifiers: Chest pain type: unspecified Qualified Code(s): R07.9 - Chest pain, unspecified
[2019-12-16] MEDS ORDERED: NITROGLYCERIN SL 0.4 MG/TAB TAB SL PRN (14:50)
[2019-12-16 15:11] LABS: Basophils # (auto) 0.02 K/uL (0-0.2); Basophils % (auto) 0.2 %; Eosinophils # (auto) 0.11 K/uL (0-0.5); Hematocrit (blood only) 44.9 % (37-47); Hemoglobin 15.1 g/dL (12.0-16.0); Immature Granulocytes # (auto) 0.04 K/uL (0.00-0.02); Immature Granulocytes % (auto) 0.4 %; Lymphocytes # (auto) 2.72 K/uL (1.2-3.4); Lymphocytes % (auto) 25.9 %; Mean Corpuscular Hemoglobin 29.2 pg (25-34); Mean Corpuscular Hgb Conc 33.6 g/dL (32-36); Mean Corpuscular Volume 86.8 fL (80-100); Mean Platelet Volume 8.7 fL (7.4-10.4); Monocytes # (auto) 0.48 K/uL (0.11-0.59); Monocytes % (auto) 4.6 %; Neutrophils # (auto) 7.15 K/uL (1.4-6.5); Neutrophils % (auto) 67.9 %; Platelet Count 270 K/uL (130-400); RDW Coefficient of Variation 13.8 % (11.5-14.5); RDW Standard Deviation 43.9 fL (36.4-46.3); Red Blood Count 5.17 M/uL (4.2-5.4); White Blood Count 10.52 K/uL (4.8-10.8)
--- NOTE | 2019-12-16 15:11 | XRay Report ---
XR chest 1V portable CLINICAL HISTORY: Chest Pain COMPARISON STUDY: 05/23/2018 FINDINGS: The bones soft tissues and hemidiaphragms are normal. The cardiomediastinal silhouette is n ormal. The lungs are clear. The pulmonary vasculature is normal. IMPRESSION: Negative chest. ACT 112: Negative or not required by law. The above report was generated using voice recognition software. It may contain grammatical, syntax or spelling errors. Electronically signed by: Donn Ng M.D. 12/16/2019 3:10 PM
[2019-12-16 15:24] LABS: Partial Thromboplastin Ratio 0.9; Partial Thromboplastin Time 26.1 Seconds (21.0-31.0)
[2019-12-16 15:30] LABS: BUN Creatinine Ratio 21.9 (10-20); Calcium 9.6 mg/dl (8.5-10.1); Est GFR (African American) 103.9; Est GFR (Non-African American) 89.7; Magnesium 2.2 mg/dl (1.8-2.4); Potassium 3.8 mmol/L (3.5-5.1)
[2019-12-16 15:37] LABS: Bilirubin,Total 0.5 mg/dl (0.2-1); Globulin 3.9 gm/dl (2.5-4.0); Phosphorus 3.2 mg/dl (2.5-4.9); Total Protein 7.9 gm/dl (6.4-8.2); Troponin I 2.18 ng/ml (0-0.045)
[2019-12-16] MEDS ORDERED: HEPARIN SODIUM/DEXTROSE 25,000 UNITS/500 ML BAG IV SCH ×2 (15:45→16:00)
[2019-12-16] MEDS ORDERED: Heparin IV Low Dose WITH Bolus IV STA (15:56)
[2019-12-16] MEDS ORDERED: SODIUM CHLORIDE 0.9% 1000ML 500 ML IV ONE (16:16)
[2019-12-16] MEDS ORDERED: METOPROLOL TARTRATE 25 MG TAB PO STA ×2 (16:22→17:43)
[2019-12-16] MEDS ORDERED: HEPARIN SOD (PORCINE) 1000 UNIT/ML 10 ML VIAL ONE (16:25)
[2019-12-16] MEDS ORDERED: HEPARIN SOD (PORCINE) 1000 UNIT/ML 10 ML VIAL IV SCH (16:30)
--- NOTE | 2019-12-16 16:38 | History & Physical Report ---
Date of Service December 16, 2019 Assessment & Plan (1) Non-ST elevation myocardial infarction (NSTEMI): ASA, Metoprolol, Lisinopril, Atorvastatin. Hold off plavix unless she starts having more chest pain in case she requires CT surgery. Nitroglycerin first line or morphine second line PRN for chest pain Heparin low dose IV drip with bolus Serial troponins TTE HbA1C and lipid panel in AM Consult cardiology, NPO after midnight for potential catheterization in AM (2) Benign essential hypertension: Hold benazepril/HCTZ in favor to optimize cardiac medication. Likely to need to go back on diuretic given chronic leg swelling (see below) HR in 60-70 prior to metoprolol given therefore will give a low dose tartrate 12.5mg PO BID Lisinopril 10mg PO NOW, then QAM -> can likely be increased depending on BP overnight (3) Hypothyroidism: Due for repeat TSH but innapropriate in setting of acute IA and only on small dose therefore will hold off repeating TSH and continue levothyroxine 25 mcg PO daily (4) Morbid obesity: Recommend cardiac rehabilitation after discharge Screen for KAPIL - not discussed on admission (5) Acid reflux disease: Switch omeprazole for pantoprazole as per hospital formulary (6) Bilateral leg edema: Patient reports chronic, worse in summer and hot weather. No worse than what it has been. Suspect represents venous insufficiency rather than right sided heart failure. Given chronicity over many year - DVT highly unlikely despite left > right leg swelling therefore no need for US venous doppler at present time. (7) Allergic rhinitis: Cetirizine 10mg PO daily (8) DVT prophylaxis: Heparin IV drip as above Admission and Anticipated Discharge Date Admission Date: 09/16/2019 History of Present Illness Chief Complaint: Chest pain, abnormal EKG Primary Care Provider: Sujey Starr MD Gina Fisher is a 69 year old female who presents to the ER via EMS due to abnormal EKG and chest pain at her PCP office. Her symptoms started 2 days ago on Saturday night with pain in both arms, neck, chest and back. She felt like she had strained something from swimming the day before. However the pain was worse on exertion and relieved with rest. Lasted for approximately 5 minutes. Severity 5-6/10. This was the worst time she had her chest pain. It occurred again throughout the night, at rest, lasting for a few minutes each time. No as sociated diaphoresis, shortness of breath or nausea. Yesterday morning again was occuring on exertion and she took advil and acetaminophen which appeared to improve her symptoms. Last time she had any chest pain was 7am this morning which she took some Advil for this. Some of her pain is worse on palpation. She called her PCP office for an appointment to get something to help with the presumed MSK pain as she was preparing for a camping trip. In her PCP office she had an abnormal EKG showing anterolateral TWI and was given ASA 325mg chew. Since 7am this morning she has been chest pain free and her worst episode was on Saturday. In the ER troponin was elevated therefore she was started on low dose IV heparin drip with bolus. No diabetes, former smoker (4 pack-year history), stopped 45 years ago. Significant family history with Father - in 40s from IA, brother - 45 when he first had IA. Allergies Allergy/AdvReac Type Severity Reaction Status Date / Time Penicillins Allergy Unknown Hives Verified 12/16/19 15:43 Home Medications Home Medications Medication Instructions Recorded Confirmed Type clobetasol 0.05 % scalp solution 1 applic TOPICAL BID PRN #50 ml 12/24/18 12/16/19 Rx omeprazole 10 mg capsule,delayed 10 mg PO QAM #90 cap 07/09/19 12/16/19 Rx release benazepril 10 1 tab PO QAM #90 tab 09/16/19 12/16/19 Rx mg-hydrochlorothiazide 12.5 mg tablet aspirin 81 mg PO QAM 12/16/19 12/16/19 History cetirizine [Zyrtec] 10 mg PO DAILY 12/16/19 12/16/19 History cyclobenzaprine 10 mg PO HS 12/16/19 12/16/19 History levothyroxine 25 mcg PO QAM 12/16/19 12/16/19 History nystatin-triamcinolone 1 applic TOPICAL BID PRN 12/16/19 12/16/19 History peg 400-propylene glycol (PF) 1 drp OPHTHALMIC (EYE) BID PRN 12/16/19 12/16/19 History [Systane (PF)] Past Med/Surg History Medical History Acid reflux disease (Chronic) Allergic rhinitis (Chronic) Benign essential hypertension (Chronic) History of tremor (Chronic) HANDS Hyperlipidemia (Chronic) Hypothyroidism (Chronic) Idiopathic peripheral neuropathy (Chronic) Morbid obesity (Chronic) Osteoarthritis (Chronic) Psoriasis of scalp (Chronic) Vitamin D deficiency (Chronic) Surgical History History of cataract surgery B/L History of tonsillectomy Hx of foot surgery R FOOT (BONE SPUR EXCISION) Hx of lipoma REMOVAL S/P colonoscopy S/P knee replacement Family History Brother Family history of diabetes mellitus Grandmother (Maternal) Family history of diabetes mellitus Grandmother (Paternal) Family history of diabetes mellitus Grandfather (Paternal) Family history of diabetes mellitus Denies family history of Ovarian cancer Prostate cancer Myocardial infarction Breast cancer Colorectal cancer Social History Preferred Language: Latvian Communication Ability: Effective Stockroom Worker Required: No Beliefs That Will Affect Care: None marital status: Current Living Situation: Spouse Other Information That Helps Us Care for You: No Feels Safe at Home: Yes Safety Concerns: Feels Safe At This Time Smoking Status: Former smoker Tobacco Type: cigarettes ; Second Hand Exposure: No ; Hx Substance Use: No Review of Systems Review of Systems: All systems reviewed & are unremarkable except as noted in HPI & below Physical Exam Constitutional: well developed and well nourished; no acute distress Eyes: + anicteric sclerae; normal pupil size ENMT: external ear and nose normal, oropharynx normal Neck: trachea midline, no thyromegaly Respiratory: normal respiratory effort, lungs clear to auscultation Cardiovascular: Rate/Rhythm: regular rate and regular rhythm Heart Sounds: no murmur Extremities: normal capillary refill and + pedal edema (1+ to knees, L > R); no calf tenderness Chest (Breasts): Additional Comments: Pain on palpation over chest wall Gastrointestinal (Abdomen): normal bowel sounds, soft, nontender, no hepatosplenomegaly Musculoskeletal: Bilateral neck stiffness. Skin: no rashes, warm and dry Neurologic: moves all extremities and awake; not confused Psychiatric: A+Ox3, euthymic affect Genitourinary: no CVA tenderness Lymphatic: no cervical or axillary lymphadenopathy Results & Data Results & Data ([facility]) Vital Signs (Past 12 Hours) Vital Signs Temp Pulse Resp BP Pulse Ox 12/16/19 14:50 37 C 80 15 216/110 H 99 Diagnostic Findings XR chest 1V portable IMPRESSION: Negative chest. ECG Rate (beats per minute): 77 Rhythm: normal sinus Findings: + T-wave inversion (anterolateral leads) Comparison ECG Date: from Change: the following changes noted (TWI acute ischemic changes are new) Code Status & VTE Plan Code Status Full VTE Prophylaxis Plan VTE Prophylaxis will be ordered: Yes PG Care Time/CCT Total # of Minutes Spent Total Time Spent with Patient: Total time spent is greater than 50% in coordination of care (as documented) at patient's floor/unit and/or counseling patient: Coding Level of Care Code 60591 Initial Inpt Care Lvl 3 Diagnoses Non-ST elevation myocardial infarction (NSTEMI) I21.4 Benign essential hypertension I10 Hypothyroidism E03.9 Morbid obesity E66.01 Acid reflux disease K21.9 Bilateral leg edema R60.0 Allergic rhinitis J30.9 DVT prophylaxis Z29.9
[2019-12-16] MEDS ORDERED: lisinopriL 10 MG TAB PO ONE (17:44)
[2019-12-16] MEDS ORDERED: MAGNESIUM HYDROXIDE SUSP 30 ML UDC PO PRN (18:53)
[2019-12-16] MEDS ORDERED: POLYETHYLENE (MIRALAX) 17 GM PACK PO PRN (18:53)
[2019-12-16] MEDS ORDERED: ONDANSETRON INJ 2 MG/ML 2 ML VIAL IV PRN (18:53)
[2019-12-16] MEDS ORDERED: ACETAMINOPHEN 325 MG TAB PO PRN (18:53)
[2019-12-16] MEDS ORDERED: ALUMINUM/MAGNESIUM SUSP 30 ML UDC PO PRN (18:53)
[2019-12-16] MEDS ORDERED: ARTIFICIAL TEARS OP PRN (18:58)
[2019-12-16] MEDS: ATORVASTATIN 40 MG TAB PO SCH (20:06)
[2019-12-16 22:06] LABS: Partial Thromboplastin Ratio 1.3
[2019-12-16] MEDS ORDERED: HEPARIN IV BOLUS 4,500 UNITS in SYRINGE 0 ML IV ONE (22:45)
[2019-12-17] MEDS ORDERED: MoRPHine SULFATE 2 MG/ML CARP IV PRN (01:27)
[2019-12-17] MEDS: LEVOTHYROXINE SODIUM 25 MCG TABLET PO SCH (05:16)
[2019-12-17 05:45] LABS: Hematocrit (blood only) 41.3 % (37-47); Hemoglobin 13.6 g/dL (12.0-16.0); Mean Corpuscular Hemoglobin 28.7 pg (25-34); Mean Corpuscular Hgb Conc 32.9 g/dL (32-36); Mean Corpuscular Volume 87.1 fL (80-100); Mean Platelet Volume 8.9 fL (7.4-10.4); Platelet Count 224 K/uL (130-400); RDW Coefficient of Variation 13.9 % (11.5-14.5); RDW Standard Deviation 44.7 fL (36.4-46.3); Red Blood Count 4.74 M/uL (4.2-5.4); White Blood Count 11.92 K/uL (4.8-10.8)
[2019-12-17 06:11] LABS: Partial Thromboplastin Ratio 1.9
[2019-12-17 06:15] LABS: Partial Thromboplastin Time 53.5 Seconds (21.0-31.0)
[2019-12-17 06:16] LABS: BUN Creatinine Ratio 22.7 (10-20); Calcium 9.3 mg/dl (8.5-10.1); Creatinine Clr Calc Pharmacy 103.2 ml/min; Est GFR (African American) 107.6; Est GFR (Non-African American) 92.8; Potassium 4.1 mmol/L (3.5-5.1)
[2019-12-17 06:23] LABS: Troponin I 2.97 ng/ml (0-0.045)
--- NOTE | 2019-12-17 06:23 | Electrocardiogram Report ---
Test Reason : Blood Pressure : / mmHG Vent. Rate : 077 BPM Atrial Rate : 077 BPM P-R Int : 134 ms QRS Dur : 090 ms QT Int : 402 ms P-R-T Axes : 021 024 135 degrees QTc Int : 454 ms Sinus rhythm with occasional Premature ventricular complexes Abnormal ECG When compared with ECG of 23-MAY-2018 15:08, Premature ventricular complexes are now Present T wave inversion now evident in Anterior leads Confirmed by Armando Moe ([id number]) on 12/17/2019 6:22:46 AM Referred By: Confirmed By:Armando Moe
[2019-12-17 06:29] LABS: Estimated Average Glucose 117 mg/dl; Hemoglobin A1C 5.7 % (4.5-5.6)
[2019-12-17 06:41] LABS: Basophils # (auto) 0.03 K/uL (0-0.2); Basophils % (auto) 0.3 %; Eosinophils % (auto) 1.7 %; Immature Granulocytes # (auto) 0.02 K/uL (0.00-0.02); Immature Granulocytes % (auto) 0.2 %; Lymphocytes # (auto) 5.15 K/uL (1.2-3.4); Lymphocytes % (auto) 43.2 %; Monocytes # (auto) 0.66 K/uL (0.11-0.59); Monocytes % (auto) 5.5 %; Neutrophils # (auto) 5.86 K/uL (1.4-6.5); Neutrophils % (auto) 49.1 %
[2019-12-17] MEDS ORDERED: HEPARIN (PORCINE) 1000 UNIT/ML 10 ML (CATH LAB USE ONLY) ONE ×2 (09:00→11:21)
[2019-12-17] MEDS ORDERED: NiCARDipine HCL INJ 2.5 MG/ML 10 ML AMP ONE (09:00)
[2019-12-17] MEDS ORDERED: MIDAZOLAM HCL 1 MG/ML 2ML VIAL ONE ×6 (09:01→11:56)
[2019-12-17] MEDS ORDERED: NITROGLYCERIN/D5W 100MCG/ML 20ML SYR ONE (09:01)
[2019-12-17] MEDS ORDERED: fentaNYL citrate 100 MCG/2 ML VIAL ONE ×3 (09:01→11:33)
--- NOTE | 2019-12-17 09:45 | Pre Anesthesia Assessment ---
Date of Service December 17, 2019 Pre Sedation Assessment Vital Signs Temp Pulse Pulse Resp BP BP Pulse Ox 12/17/19 07:43 36.8 C 61 18 153/84 H 93 12/17/19 03:40 36.8 C 70 19 150/76 H 96 12/16/19 23:29 36.7 C 62 17 150/88 H 95 12/16/19 22:10 36.2 C L 65 18 173/83 H 97 12/16/19 19:18 37.4 C 68 20 180/90 H 93 12/16/19 19:16 36.8 C 62 18 153/83 H 93 12/16/19 18:46 64 12/16/19 18:00 70 18 158/103 H 96 12/16/19 17:30 64 22 177/105 H 96 12/16/19 17:02 67 24 181/82 H 97 12/16/19 17:00 67 23 98 12/16/19 16:30 70 26 H 98 12/16/19 16:00 72 24 97 12/16/19 15:30 66 16 98 12/16/19 15:04 68 19 177/95 H 99 12/16/19 14:50 37 C 80 15 216/110 H 99 Cardiovascular RRR, no murmur, no edema Respiratory normal respiratory effort, lungs clear to auscultation Pre-Sedation Airway Assessment Smoking Status: Former smoker Hx Sleep Apnea: No Short, Thick Neck: No Thyromental Distance: > or= 3.5 Finger Breadths Oral Cavity: + WNL Mallampati Class: II ASA: ASA3 NPO Status Date of Last Intake of Fluids: 12/16/19 Time of Last Intake of Fluids: 23:00 Date of Last Intake of Solid Food: 12/16/19 Time of Last Intake of Solid Foods: 20:00 Procedure Planning Contraindications for Sedation: none Current Medications Reviewed: Yes Notes The planned sedation has been discussed with the patient. Informed Consent was obtained. I have identified the patient, determined the appropriateness of sedation and have assessed the patient immediately prior to the procedure. All medicine(s) and interventions are by my order.
--- NOTE | 2019-12-17 09:46 | Cardiology Consultation ---
Date of Consultation December 17, 2019 Assessment & Plan (1) Non-ST elevation myocardial infarction (NSTEMI): (2) Hyperlipidemia: (3) Benign essential hypertension: ASSESSMENT/PLAN: 1. NSTEMI: She gives a history for unstable angina and has troponins peaked at 3.37. ECG and echo suggest LAD as the culprit vessel. Currently angina free. We discussed diagnosis. Continue heparin drip. Continue aspirin. Can continue beta-marito and ZEUS inhibitor. Continue high intensity statin therapy. Recommend a cardiac catheterization. Risks and benefits were discussed with her in detail. She was made aware that CT surgery is not available at this facility. She was agreeable to undergo the procedure today. 2. Dyslipidemia: LDL not optimized. She did not tolerate Crestor or pravastatin due to myalgias. She was agreeable to try Lipitor. Lipitor has been started by the admitting service. Continue as tolerated. 3. Hypertension: Continue ZEUS inhibitor. Continue beta-marito as tolerated. May need to further titrate ZEUS inhibitor for effect. Blood pressure has been mildly elevated. If blood pressure remains elevated this afternoon, recommend increasing lisinopril. 4. Disposition: Cardiology will continue to follow. Dr. Pinedo was contacted regarding patient care. Highly complex medical issues. Thank you for allowing me to participate in the care of your patient. Please call for any other questions or concerns. Sincerely, Regino Moe M.D. History of Present Illness Reason for Consultation: NSTEMI Requesting Physician: Dr. Crenshaw Attending Physician: Evelyne Pinedo, History of Present Illness Mrs. Fisher is a pleasant 69-year-old female with a history significant for hypertension, dyslipidemia, and hypothyroidism. She was referred to the ER on 12/16/2019 by her PCPs office due to chest discomfort and abnormal ECG. 3 days ago, she developed a discomfort in her chest, bilateral shoulders, and arms. She describes the discomfort as an ache. It occurred at approximately 10 PM when she was walking to the shower and resolved while in the shower. Later that night, when she got up to go to bed, the symptoms returned. Symptoms were intermittently occurring throughout the night, while at rest. Symptoms continued to spontaneously resolve within a few minutes. 2 days ago, the discomfort was there when she woke up in the morning and intermittently occurred throughout the day. She tried taking Advil and Tylenol for the pain. Yesterday, she continued to have the symptoms throughout the day which prompted a visit with her PCP. An ECG demonstrated anterior T wave inversion, prompting ER evaluation. She denies any pain this morning. She denies any associated shortness of breath or diaphoresis. She denies syncope, near syncope, palpitations, or bleeding such as melena, hematochezia, hematuria. She does have chronic intermittent left foot swelling during hot and humid weather but has not noted any recent exacerbation. Right knee issues following surgery have limited exertional activities. In the past, she tried taking pravastatin and Crestor but had myalgias in her lower extremities and also felt tired. Review of systems: As above. Review systems otherwise negative. Family history: Father from [place] in his 40s. Brother had his first [place] in his 40s. Social history: She quit smoking over 40 years ago. Rare alcohol. No drugs. She lives at home with her , Gonzalo. She has 1 daughter. She is retired from being an insurance customer service advisor. Her was present at the bedside. Allergies Allergy/AdvReac Type Severity Reaction Status Date / Time Penicillins Allergy Unknown Hives Verified 12/16/19 15:43 Home Medications Home Medications Medication Instructions Recorded Confirmed Type clobetasol 0.05 % scalp solution 1 applic TOPICAL BID PRN #50 ml 12/24/1801/27 Rx omeprazole 10 mg capsule,delayed 10 mg PO QAM #90 cap 07/09/19 12/16/19 Rx release benazepril 10 1 tab PO QAM #90 tab 09/16/19 12/16/19 Rx mg-hydrochlorothiazide 12.5 mg tablet aspirin 81 mg PO QAM 12/16/19 12/16/19 History cetirizine [Zyrtec] 10 mg PO DAILY 12/16/19 12/16/19 History cyclobenzaprine 10 mg PO HS 12/16/19 12/16/19 History levothyroxine 25 mcg PO QAM 12/16/19 12/16/19 History nystatin-triamcinolone 1 applic TOPICAL BID PRN 12/16/19 12/16/19 History peg 400-propylene glycol (PF) 1 drp OPHTHALMIC (EYE) BID PRN 12/16/19 12/16/19 History [Systane (PF)] Patient History Medical History Acid reflux disease (Chronic) Allergic rhinitis (Chronic) Benign essential hypertension (Chronic) History of tremor (Chronic) HANDS Hyperlipidemia (Chronic) Hypothyroidism (Chronic) Idiopathic peripheral neuropathy (Chronic) Morbid obesity (Chronic) Osteoarthritis (Chronic) Psoriasis of scalp (Chronic) Vitamin D deficiency (Chronic) Surgical History History of cataract surgery B/L History of tonsillectomy Hx of foot surgery R FOOT (BONE SPUR EXCISION) Hx of lipoma REMOVAL S/P colonoscopy S/P knee replacement Family History (Updated 12/17/19 @ 10:55 by Armando Moe MD) Brother Family history of diabetes mellitus Coronary heart disease Grandfather (Paternal) Family history of diabetes mellitus Father Coronary heart disease Social History Preferred Language: Beninese Communication Ability: Effective Hairmasters Manager Required: No Beliefs That Will Affect Care: None marital status: Current Living Situation: Spouse Other Information That Helps Us Care for You: No Feels Safe at Home: Yes Safety Concerns: Feels Safe At This Time Smoking Status: Former smoker Tobacco Type: cigarettes ; Second Hand Exposure: No ; Hx Substance Use: No Physical Exam Physical Exam: Gen.: No acute distress. Alert and oriented. HEENT: Anicteric sclera. Neck: No JVD. No bruits. Normal carotid upstrokes bilaterally. Cardiac: PMI was nonpalpable. No ventricular heave. Regular rate and rhythm. Normal S1-S2. No murmurs, rubs, or gallops. Pulmonary: Clear to auscultation bilaterally without wheezes, rales, or rhonchi. Abdomen: Soft, nontender, nondistended, with normoactive bowel sounds. No bruits noted. Extremities: 2+ radial pulses bilaterally. 2+ posterior tibialis pulses bilaterally. No edema or cyanosis. Psychiatric: Affect appears appropriate. Results & Data ([facility]) Vital Signs (Past 12 Hours) Vital Signs Temp Pulse Resp BP Pulse Ox 12/17/19 07:43 36.8 C 61 18 153/84 H 93 07/09/20 03:40 36.8 C 70 19 150/76 H 96 12/16/19 23:29 36.7 C 62 17 150/88 H 95 12/16/19 22:10 36.2 C L 65 18 173/83 H 97 Laboratory Results Laboratory Results - last 24 hr 12/16/19 12/16/19 12/16/19 15:04 15:04 15:04 WBC 10.52 RBC 5.17 Hgb 15.1 Hct 44.9 MCV 86.8 MCH 29.2 MCHC 33.6 RDW Std Deviation 43.9 RDW Coeff of Leonarda 13.8 Plt Count 270 MPV 8.7 Immature Gran % (Auto) 0.4 Neut % (Auto) 67.9 Lymph % (Auto) 25.9 Leslie % (Auto) 4.6 Eos % (Auto) 1.0 Baso % (Auto) 0.2 Neut # (Auto) 7.15 H Lymph # (Auto) 2.72 Leslie # (Auto) 0.48 Eos # (Auto) 0.11 Baso # (Auto) 0.02 Immature Gran # (Auto) 0.04 H PT 11.0 INR 1.0 APTT 26.1 PTT Ratio 0.9 Sodium 138 Potassium 3.8 Chloride 104 Carbon Dioxide 29 Anion Gap 5.0 BUN 15 Creatinine 0.70 Est Cr Clr Drug Dosing 93.0 Est GFR ( Amer) 103.9 Est GFR (Non-Af Amer) 89.7 BUN/Creatinine Ratio 21.9 H Glucose 110 H Estimat Average Glucose Hemoglobin A1c Calcium 9.6 Phosphorus 3.2 Magnesium 2.2 Total Bilirubin 0.5 AST 32 ALT 26 Alkaline Phosphatase 102 Troponin I 2.180 H* Total Protein 7.9 Albumin 4.0 Globulin 3.9 Albumin/Globulin Ratio 1.0 Triglycerides Cholesterol LDL Cholesterol, Calc VLDL Cholesterol, Calc HDL Cholesterol Cholesterol/HDL Ratio Lipase 95 12/16/19 12/16/19 12/17/19 16:53 21:40 00:54 WBC RBC Hgb Hct MCV MCH MCHC RDW Std Deviation RDW Coeff of Leonarda Plt Count MPV Immature Gran % (Auto) Neut % (Auto) Lymph % (Auto) Leslie % (Auto) Eos % (Auto) Baso % (Auto) Neut # (Auto) Lymph # (Auto) Leslie # (Auto) Eos # (Auto) Baso # (Auto) Immature Gran # (Auto) PT INR APTT 36.0 H PTT Ratio 1.3 Sodium Potassium Chloride Carbon Dioxide Anion Gap BUN Creatinine Est Cr Clr Drug Dosing Est GFR ( Amer) Est GFR (Non-Af Amer) BUN/Creatinine Ratio Glucose Estimat Average Glucose Hemoglobin A1c Calcium Phosphorus Magnesium Total Bilirubin AST ALT Alkaline Phosphatase Troponin I 2.280 H* 3.370 H* Total Protein Albumin Globulin Albumin/Globulin Ratio Triglycerides Cholesterol LDL Cholesterol, Calc VLDL Cholesterol, Calc HDL Cholesterol Cholesterol/HDL Ratio Lipase 12/17/19 12/17/19 12/17/19 05:01 05:01 05:01 WBC 11.92 H RBC 4.74 Hgb 13.6 Hct 41.3 MCV 87.1 MCH 28.7 MCHC 32.9 RDW Std Deviation 44.7 RDW Coeff of Leonarda 13.9 Plt Count 224 MPV 8.9 Immature Gran % (Auto) 0.2 Neut % (Auto) 49.1 Lymph % (Auto) 43.2 Leslie % (Auto) 5.5 Eos % (Auto) 1.7 Baso % (Auto) 0.3 Neut # (Auto) 5.86 Lymph # (Auto) 5.15 H Leslie # (Auto) 0.66 H Eos # (Auto) 0.20 Baso # (Auto) 0.03 Immature Gran # (Auto) 0.02 PT INR APTT 53.5 H* PTT Ratio 1.9 Sodium 141 Potassium 4.1 Chloride 107 Carbon Dioxide 30 Anion Gap 4.0 BUN 14 Creatinine 0.63 Est Cr Clr Drug Dosing 103.2 Est GFR ( Amer) 107.6 Est GFR (Non-Af Amer) 92.8 BUN/Creatinine Ratio 22.7 H Glucose 115 H Estimat Average Glucose Hemoglobin A1c Calcium 9.3 Phosphorus Magnesium Total Bilirubin AST ALT Alkaline Phosphatase Troponin I 2.970 H* Total Protein Albumin Globulin Albumin/Globulin Ratio Triglycerides 162 H Cholesterol 206 H LDL Cholesterol, Calc 136 VLDL Cholesterol, Calc 32 HDL Cholesterol 38 Cholesterol/HDL Ratio 5 Lipase 12/17/19 05:01 WBC RBC Hgb Hct MCV MCH MCHC RDW Std Deviation RDW Coeff of Leonarda Plt Count MPV Immature Gran % (Auto) Neut % (Auto) Lymph % (Auto) Leslie % (Auto) Eos % (Auto) Baso % (Auto) Neut # (Auto) Lymph # (Auto) Leslie # (Auto) Eos # (Auto) Baso # (Auto) Immature Gran # (Auto) PT INR APTT PTT Ratio Sodium Potassium Chloride Carbon Dioxide Anion Gap BUN Creatinine Est Cr Clr Drug Dosing Est GFR ( Amer) Est GFR (Non-Af Amer) BUN/Creatinine Ratio Glucose Estimat Average Glucose 117 Hemoglobin A1c 5.7 H Calcium Phosphorus Magnesium Total Bilirubin AST ALT Alkaline Phosphatase Troponin I Total Protein Albumin Globulin Albumin/Globulin Ratio Triglycerides Cholesterol LDL Cholesterol, Calc VLDL Cholesterol, Calc HDL Cholesterol Cholesterol/HDL Ratio Lipase Diagnostic Findings Telemetry personally reviewed: Sinus rhythm. No arrhythmia. ECGs personally reviewed: ECG 12/16/2019 at 2354: Sinus bradycardia 59 bpm. Anterior T wave inversion. ECG 12/16/2019 at 1449: Sinus rhythm with PVCs 77 bpm. Anterior T wave inversion. Echocardiogram Images images from 12/17/2019 personally reviewed: Preliminary review demonstrated low normal to mildly reduced systolic function with LAD wall motion abnormality, predominantly affecting apex. Formal review to follow. Chest x-ray 12/16/2019: No acute abnormality per radiology. Medications Administered Current Inpatient Medications Acetaminophen (Tylenol) 650 mg PO Q4H PRN PRN Reason: Pain or Fever Stop: 01/15/20 18:52 Al Hydrox/Mg Hydrox/Simethicone (Maalox) 15 ml PO Q4H PRN PRN Reason: Dyspepsia Stop: 01/15/20 18:52 Artificial Tears (Artificial Tears) 1 drops OP BID PRN PRN Reason: DRY EYE Stop: 01/15/20 18:57 Aspirin (Ecotrin Ectab) 81 mg PO QAM [facility] Stop: 01/16/20 08:59 Atorvastatin Calcium (Lipitor) 40 mg PO QPM [facility] Stop: 01/15/20 20:59 Last Admin: 12/16/19 20:06 Dose: 40 mg Documented by: Cetirizine HCl (Zyrtec) 10 mg PO DAILY [facility] Stop: 01/16/20 08:59 Heparin Sodium/Dextrose (Heparin Sodium/Dextrose) 25,000 units in 500 mls @ 21 mls/hr IV .[id number] [facility]; Protocol Stop: 01/15/20 15:59 Last Titration: 12/17/19 06:20 Dose: 1,050 units/hr, 21 mls/hr Documented by: Levothyroxine Sodium (Synthroid) 25 mcg PO DAILYBB [facility] Stop: 01/16/20 06:29 Last Admin: 12/17/19 05:16 Dose: Not Given Documented by: Lisinopril (Zestril) 10 mg PO QAM [facility] Stop: 01/16/20 08:59 Magnesium Hydroxide (Milk Of Magnesia) 30 ml PO Q12H PRN PRN Reason: Constipation Stop: 01/15/20 18:52 Metoprolol Tartrate (Lopressor) 12.5 mg PO BID [facility] Stop: 01/16/20 08:59 Morphine Sulfate (Morphine Sulfate) 2 mg IV Q30M PRN PRN Reason: Chest Pain Stop: 12/31/19 01:26 Nitroglycerin (Nitrostat) 0.4 mg SL UD PRN PRN Reason: Chest Pain Stop: 01/15/20 14:49 Ondansetron HCl (Zofran) 4 mg IV Q6H PRN PRN Reason: Nausea Stop: 01/15/20 18:52 Pantoprazole Sodium (Protonix) 40 mg PO QAM [facility] Stop: 01/16/20 08:59 Polyethylene Glycol (Miralax Powder Packet) 17 gm PO DAILY PRN PRN Reason: Constipation Stop: 01/15/20 18:52 PG Care Time/CCT Total # of Minutes Spent Total Time Spent with Patient: Total time spent is greater than 50% in coordination of care (as documented) at patient's floor/unit and/or counseling patient: Coding Level of Care Code 49920 Initial Inpt Care Lvl 3 Diagnoses Non-ST elevation myocardial infarction (NSTEMI) I21.4 Hyperlipidemia E78.5 Benign essential hypertension I10
--- NOTE | 2019-12-17 10:47 | Cardiac Catheterization ---
[facility] Data: Structural Analysis Engineer Cardiac Status Clinical evaluation leading to the procedure CAD Presenation: Non STEMI Anginal Classification: CCS IV Heart Failure: No Cardiogenic Shock within 24 Hours: No Cardiac Arrest within 24 Hours: No Imaging Studies Past 6 Months: Yes Stress Studies Past 6 Months: No Standard Exercise Test: No Stress Echocardiogram: No Stress Testing w/SPECT MPI: No Cardiac CTA: No Coronary Anatomy Dominant: Right Left Ventricular Angiography EF (%): n/a Diagnostic Physicians Name: Armando Moe MD Status: Elective Closure Device Percutaneous Entry Location: Radial Closure Device: Radial Band Recommendations: PCI without planned CABG Cardiac Cath Procedure Full Procedure Date December 17, 2019 Pre-Procedure Diagnosis Pre-Procedure Diagnosis: Non STEMI (Presented with progressively worsening anginal symptoms, positive troponin, anterior T wave inversion, and LAD wall motion abnormality on echo.) AUC Score AUC Score: 9 Post-Procedure Diagnosis Post-Procedure Diagnosis: Severe CAD and Normal Intracardiac Pressures Procedure(s) Performed Procedure(s) Performed: Coronary Angiography and Left Heart Cath Transcript Clerk Armando Moe MD Tax Associate Attorney(s) Jessica Harvey Estimated Blood Loss Estimated Blood Loss: < 25 ml Medication(s) Medication(s): Fentanyl, Heparin, Lidocaine 1%, Nicardipine and Versed Summary of Findings Procedures: 1. Coronary angiography 2. Left heart catheterization 3. Moderate sedation Coronary angiography: 1. LMCA: No significant CAD. 2. LAD: Proximal LAD 30 to 40%. Mid LAD 99% stenosis with ANKUR II flow. Large D1 with ostial to proximal 80 to 90% stenosis. 3. Circumflex: The circumflex is a large-caliber vessel proximally. Mid circumflex 30%. Distally, the circumflex extends as a small to medium caliber vessel. Distal circumflex 70 to 80% (small caliber). Large OM1 proximal 30%. ANKUR-3 flow throughout. 4. Right coronary artery: RCA is large and dominant. Proximal RCA 40 to 50% smooth narrowing. Mid RCA 30%. Distal RCA diffuse 20%. Large PDA and medium caliber PL branch without significant CAD. Left heart catheterization: 1. Left ventriculography was not performed. 2. No significant aortic stenosis. Peak to peak gradient across the aortic valve was 0 mmHg. 3. Normal LVEDP. LVEDP 10 mmHg. Moderate sedation: 1. Sedation start time: 9:50 AM 2. Sedation end time: 10:20 AM Impression: 1. Severe CAD involving mid LAD with ANKUR II flow. 2. Severe CAD involving large D1 and distal circumflex (small in caliber). 3. Otherwise, nonobstructive CAD involving RCA and OM. 4. No aortic stenosis. 5. Normal left-sided filling pressure. Plan: 1. Images reviewed with Dr. Doherty of interventional cardiology. 2. PCI attempt of LAD and possibly diagonal (will defer to Dr. Doherty). 3. Optimize medical therapy. Hemodynamics Rest Ao:: 138/58 Final Ao: 131/56 LV: 145/2/10 Recommendations Recommendations: PCI without planned CABG Specimens Specimens: None Radiation Exposure (mGy) 1000 mGy. Fluoro time 7.6 min. Contrast (mls) 55 ml Procedural Complication(s) None Disposition remains in clinical laboratory service teacher for PCI attempt I attest to the content of the Intraoperative Record and any orders documented therein. Any exceptions are noted below. [facility] Card Cath Procedure Codes Cardiac Catheterization Procedure 1: Cardiovascular Cath Procedures: 26614 Coronaries and LHC (+/-LV) Moderate Sedation Procedure 1: Sedation/Anesthesia: 31897 Mod Sedation by the same physician;Init15 Min Child Age 5 & Up Procedure 2: Sedation/Anesthesia: 03018 Mod Sedation by the same physician; Ea [id number] Minutes PG Care Time/CCT Total # of Minutes Spent Total Time Spent with Patient: Total time spent is greater than 50% in coordination of care (as documented) at patient's floor/unit and/or counseling patient:
[2019-12-17] MEDS ORDERED: TICAGRELOR 90 MG TAB PO ONE (12:15)
--- NOTE | 2019-12-17 12:21 | Post Anesthesia Assessment ---
Date of Service December 17, 2019 Post Sedation Assessment Vital Signs Temp Pulse Pulse Resp BP BP Pulse Ox 12/17/19 07:43 98.2 F 61 18 153/84 H 93 12/17/19 03:40 98.2 F 70 19 150/76 H 96 12/16/19 23:29 98.1 F 62 17 150/88 H 95 12/16/19 22:10 97.2 F L 65 18 173/83 H 97 12/16/19 19:18 99.3 F 68 20 180/90 H 93 12/16/19 19:16 98.2 F 62 18 153/83 H 93 12/16/19 18:46 64 12/16/19 18:00 70 18 158/103 H 96 12/16/19 17:30 64 22 177/105 H 96 12/16/19 17:02 67 24 181/82 H 97 12/16/19 17:00 67 23 98 12/16/19 16:30 70 26 H 98 12/16/19 16:00 72 24 97 12/16/19 15:30 66 16 98 12/16/19 15:04 68 19 177/95 H 99 12/16/19 14:50 98.6 F 80 15 216/110 H 99 Recovery Score Activity: Moves 4 extremities Respiration: Deep Breath/Cough Circulation: +/-20% PreAnes Value Consciousness: Fully Awake Oxygen Saturation: O2 needed for >90% Discharge Sedation Level of Care: Fast Track Phase II Post Sedation Plan On clinical assessment, the patient appears to have tolerated the sedation without complications. Patient is recovering as anticipated. Patient will continue to be monitored by nursing and may be discharged when sedation discharge criteria are met per below protocol. Upon Completions of procedure up to 15 minutes continue every 5 minute vital signs and the P.A.R. score; then discharge to a Phase I or Fast Track to Phase II per the following guidelines: * Discharge Patient to appropriate Phase II area if PAR is 8 or greater or return to pre- procedure baseline. The post - procedure orders will be as directed. * If PAR score is less than 8 or not return to pre-procedure baseline then patient will follow Phase I monitoring till PAR is reached for Phase II. The Phase I may be done in procedure room or may call to secure a Phase I area. * If naloxone or flumazenil are used for reversal, hold in Phase I for continued monitoring from when last reversal dose was given for a minimum of 60 minutes or longer pending the nurse and/or physician discretion of patient condition before discharge to Phase II. Please call the Sedation Physician to re-evaluate and complete post-note for discharge to Phase II area. Do NOT discharge from procedure sedation or Phase 1 until post- sedation evaluation note is complete by procedure /sedation MD Sedation Discharge Instructions to be given to the patient at discharge to home.
--- NOTE | 2019-12-17 12:30 | Cardiac Catheterization ---
[facility] Data: Design Cell Engineer Cardiac Status Clinical evaluation leading to the procedure CAD Presenation: Non STEMI Anginal Classification: CCS IV Heart Failure: No Cardiogenic Shock within 24 Hours: No Cardiac Arrest within 24 Hours: No Imaging Studies Past 6 Months: Yes Stress Studies Past 6 Months: No Diagnostic Physicians Name: Quintin Doherty MD Closure Device Percutaneous Entry Location: Radial Closure Device: Radial Band Recommendations: PCI without planned CABG PCI Indication: PCI for high risk Non-MONTY Lesion Segment Name: mid LAD Culprit Artery: Yes Stenosis Prior to Rx (%): 99 Chronic Total Occlusion: No IVUS: No FFR: No Pre-Procedure ANKUR Flow: 2 Previously Treated Lesion: No Lesion Complexity: Non-High/Non-C Lesion Length (mm): 18 Thrombus Present: Yes Bifurcation Lesion: No Guidewire Across Lesion: Stenosis Post-Procedure (%): 0 Post-Procedure ANUKR Flow: 3 Devices(s) Deployed: Yes Yes Intraprocedure Events Significant Disection: No Perforation: No Cardiac Cath Procedure Full Procedure Date December 17, 2019 Pre-Procedure Diagnosis Pre-Procedure Diagnosis: Non STEMI (Presented with progressively worsening anginal symptoms, positive troponin, anterior T wave inversion, and LAD wall motion abnormality on echo.) AUC Score AUC Score: 9 Post-Procedure Diagnosis Post-Procedure Diagnosis: Severe CAD and Successful PCI Procedure(s) Performed Procedure(s) Performed: Coronary Angiography and Drug Eluting Stent Driver'S Education Instructor Quintin Doherty MD Reverse Logistics Analyst(s) Jessica Harvey Estimated Blood Loss Estimated Blood Loss: < 25 ml Medication(s) Medication(s): Fentanyl, Heparin, Lidocaine 1%, Nicardipine and Versed Medication(s): Ticagrelor Summary of Findings Indication: High risk NSTEMI Access: 6 Fr slender right radial artery Catheters: EBU 3.5 guide Findings: For full details of patient's coronary angiography please see cath report dictated by Dr. Moe. Briefly, patient found to have an acute 99% mid LAD stenosis with ANKUR II distal flow along with a 90% stenosis in her first diagonal. Decision to proceed with PCI. -- PCI -- Antithrombotic therapy: Heparin, ticagrelor Procedure: Left main cannulated with EBU 3.5 guide Side Stitching Machine Operator 50 wire passed across lesion into distal LAD Pro-water wire placed into first diagonal Mid LAD lesion predilated with 2.0 compliant balloon Proximal first diagonal dilated with 2.0 compliant balloon Proximal first diagonal stented with 2.25 x 15 mm Xience Bri drug-eluting stent Stent postdilated with stent balloon Some difficulty delivering stent to mid LAD and redilated with 2.5 balloon With the aid of a guideliner dilated LAD lesion stented with 3.0 x 23 mm Xience Bri drug-eluting Stent post-dilated with 3.0 noncompliant balloon IC vasodilators administered for spasm Post procedure ANKUR 3 flow, stents well expanded with minimal residual stenosis and no apparent cardiac complications. Arterial Closure: TR band Summary: 1. Successful PCI of mid LAD with single drug-eluting stent (3.0 x 23 mm Xience Bri). 2. Successful PCI of ostial/proximal first diagonal (2.25 x 15 mm Xience Bri; takeoff of diagonal just proximal to proximal edge of initial stent). Recommendations: To PCU for continued monitoring Loaded with ticagrelor 180 mg in Design Cell Engineer Continue dual-antiplatelet therapy for at least 1 year Continue statin, and ASCVD risk factor modification Consult cardiac Rehab Hemodynamics Rest Ao:: 135/54/85 Final Ao: 117/52/78 LV: -- Recommendations Recommendations: PCI without planned CABG Specimens Specimens: None Radiation Exposure (mGy) 3985 Contrast (mls) 170 Fluids (cc crystalloids) Fluids (cc crystalloids): 285 Drains Drains: None Anesthesia Moderate Procedural Complication(s) None Disposition PCU I attest to the content of the Intraoperative Record and any orders documented therein. Any exceptions are noted below. [facility] Card Cath Procedure Codes Moderate Sedation Procedure 1: Sedation/Anesthesia: 59793 Mod Sedation by a different physician ;Init15 Min Child Age 5&Up Procedure 2: Sedation/Anesthesia: 52487 Mod Sedation by a different physician;Ea Addit ional 15 Minutes Stenting Procedure 1: Cardiovascular Stent Procedures: 32994 Perc transcatheter placement of intracoronary stent(s), with ang Procedure 2: Cardiovascular Stent Procedures: 17970 Ea addl branch of a major coronary artery PG Care Time/CCT Total # of Minutes Spent Total Time Spent with Patient: Total time spent is greater than 50% in coordination of care (as documented) at patient's floor/unit and/or counseling patient:
[2019-12-17] MEDS ORDERED: SODIUM CHLORIDE 0.9% 1000ML 1,000 ML IV SCH (12:45)
[2019-12-17] MEDS: lisinopriL 10 MG TAB PO SCH (12:57)
[2019-12-17] MEDS: METOPROLOL TARTRATE 25 MG TAB PO SCH ×2 (12:57→21:23)
[2019-12-17] MEDS: ASPIRIN 81 MG ECTAB PO SCH (12:57)
[2019-12-17] MEDS: PANTOprazole 40 MG TAB PO SCH (12:57)
[2019-12-17] MEDS: CETIRIZINE HCL 10 MG TABLET PO SCH (12:58)
--- NOTE | 2019-12-17 15:37 | Hospitalist Progress Note ---
Date of Service December 17, 2019 Assessment & Plan (1) Non-ST elevation myocardial infarction (NSTEMI): ASA, Metoprolol, Lisinopril, Atorvastatin. Hold off plavix unless she starts having more chest pain in case she requires CT surgery. Nitroglycerin first line or morphine second line PRN for chest pain Heparin low dose IV drip with bolus Serial troponins, peaked at 3.3 and now decreasing Cath on 12/15 with LAD stent placed by Dr. Doherty Plans for aspirin 81mg, brilinta CM to check on cost A1c 5.7 LDL 136 which is too high in the setting of [place], HDL 38 which is too low, TG 162 Statin, diet (2) Benign essential hypertension: Hold benazepril/HCTZ in favor to optimize cardiac medication. Likely to need to go back on diuretic given chronic leg swelling (see below) HR in 60-70 prior to metoprolol given therefore will give a low dose tartrate 12.5mg PO BID Lisinopril 10mg PO NOW, then QAM -> can likely be increased depending on BP overnight (3) Hypothyroidism: Due for repeat TSH but innapropriate in setting of acute [place] and only on small dose therefore will hold off repeating TSH and continue levothyroxine 25 mcg PO daily (4) Morbid obesity: Recommend cardiac rehabilitation after discharge Screen for KAPIL as outpt - not discussed on admission (5) Acid reflux disease: Switch omeprazole for pantoprazole as per hospital formulary (6) Bilateral leg edema: Patient reports chronic, worse in summer and hot weather. No worse than what it has been. Suspect represents venous insufficiency rather than right sided heart failure. Given chronicity over many year - DVT highly unlikely despite left > right leg swelling therefore no need for US venous doppler at present time. (7) Allergic rhinitis: Cetirizine 10mg PO daily (8) DVT prophylaxis: Heparin IV drip as above Admission and Anticipated Discharge Date Admission Date: December 16, 2019 Subjective Pt is s/p cath. States she is doing much better. No further chest pain. No SOB. Pt denies fever, abd pain, n/v/c/d, LE pain or swelling. Tolerated PO without issue. Review of Systems Review of Systems: Pertinent positives and negatives reviewed in HPI--all others negative Physical Exam Constitutional: WD/WN, vitals as above Eyes: normal visual bran by confrontation and + anicteric sclerae Neck: normal visual inspection and trachea midline Respiratory: normal respiratory effort, lungs clear to auscultation Cardiovascular: Rate/Rhythm: regular rate and regular rhythm Gastrointestinal (Abdomen): Inspection/Auscultation: abdomen not distended Percussion/Palpation: abdomen soft; abdomen nontender Musculoskeletal: Head/Neck/Chest: normocephalic and head atraumatic negative for edema, peripheral pulses intact Skin: no rashes, warm and dry Neurologic: awake; not confused Speech / Cognition: normal speech Psychiatric: A+Ox3, euthymic affect Results & Data Results & Data ([facility]) Vital Signs (Past 12 Hours) Vital Signs Temp Pulse Pulse Resp BP Pulse Ox 12/17/19 14:16 59 L 148/84 H 98 12/17/19 13:46 58 L 16 152/87 H 99 12/17/19 13:16 53 L 16 161/90 H 99 12/17/19 13:01 55 L 16 158/87 H 99 12/17/19 12:46 36.6 C 53 L 16 162/91 H 98 12/17/19 12:40 54 L 16 142/63 H 96 12/17/19 12:25 54 L 16 160/66 H 96 12/17/19 07:43 36.8 C 61 18 153/84 H 93 12/17/19 03:40 36.8 C 70 19 150/76 H 96 PG Care Time/CCT Total # of Minutes Spent Total Time Spent with Patient: Total time spent is greater than 50% in coordination of care (as documented) at patient's floor/unit and/or counseling patient: Coding Level of Care Code 44990 Subseq Hosp Care Lvl 3 Diagnoses Non-ST elevation myocardial infarction (NSTEMI) I21.4 Benign essential hypertension I10 Hypothyroidism E03.9 Morbid obesity E66.01 Acid reflux disease K21.9 Bilateral leg edema R60.0 Allergic rhinitis J30.9 DVT prophylaxis Z29.9
--- NOTE | 2019-12-17 18:46 | XCELERA ---
[id number]
[2019-12-17] MEDS: ACETAMINOPHEN 500 MG TAB PO PRN (21:22)
[2019-12-17] MEDS: ATORVASTATIN 40 MG TAB PO SCH (21:23)
[2019-12-17] MEDS: TICAGRELOR 90 MG TAB PO SCH (21:23)
--- NOTE | 2019-12-18 04:38 | Electrocardiogram Report ---
Test Reason : Blood Pressure : / mmHG Vent. Rate : 059 BPM Atrial Rate : 059 BPM P-R Int : 144 ms QRS Dur : 086 ms QT Int : 472 ms P-R-T Axes : 044 022 091 degrees QTc Int : 467 ms Sinus bradycardia T wave abnormality, consider anterior ischemia Abnormal ECG When compared with ECG of 16-DEC-2019 14:49, Premature ventricular complexes are no longer Present Confirmed by Armando Moe ([id number]) on 12/18/2019 4:38:04 AM Referred By: REFERRED SELF Confirmed By:Armando Moe
--- NOTE | 2019-12-18 05:01 | Electrocardiogram Report ---
Test Reason : Blood Pressure : / mmHG Vent. Rate : 049 BPM Atrial Rate : 049 BPM P-R Int : 156 ms QRS Dur : 090 ms QT Int : 530 ms P-R-T Axes : 044 030 138 degrees QTc Int : 478 ms Sinus bradycardia T wave abnormality, consider anterior ischemia Prolonged QT Abnormal ECG When compared with ECG of 16-DEC-2019 23:54, No significant change was found Confirmed by Armando Moe ([id number]) on 12/18/2019 5:01:43 AM Referred By: REFERRED SELF Confirmed By:Armando Moe
[2019-12-18] MEDS: LEVOTHYROXINE SODIUM 25 MCG TABLET PO SCH (05:44)
[2019-12-18] MEDS: TICAGRELOR 90 MG TAB PO SCH (08:25)
[2019-12-18] MEDS: ASPIRIN 81 MG ECTAB PO SCH (08:25)
[2019-12-18] MEDS: METOPROLOL TARTRATE 25 MG TAB PO SCH (08:26)
[2019-12-18] MEDS: PANTOprazole 40 MG TAB PO SCH (08:27)
[2019-12-18] MEDS: lisinopriL 10 MG TAB PO SCH (08:27)
[2019-12-18] MEDS: CETIRIZINE HCL 10 MG TABLET PO SCH (08:27)
[2019-12-18 09:59] LABS: Basophils # (auto) 0.03 K/uL (0-0.2); Basophils % (auto) 0.3 %; Eosinophils # (auto) 0.18 K/uL (0-0.5); Hematocrit (blood only) 39.7 % (37-47); Immature Granulocytes # (auto) 0.02 K/uL (0.00-0.02); Immature Granulocytes % (auto) 0.2 %; Lymphocytes # (auto) 2.36 K/uL (1.2-3.4); Lymphocytes % (auto) 26.6 %; Mean Corpuscular Hemoglobin 28.6 pg (25-34); Mean Corpuscular Hgb Conc 32.7 g/dL (32-36); Mean Corpuscular Volume 87.4 fL (80-100); Mean Platelet Volume 8.7 fL (7.4-10.4); Monocytes # (auto) 0.58 K/uL (0.11-0.59); Monocytes % (auto) 6.5 %; Neutrophils # (auto) 5.69 K/uL (1.4-6.5); Neutrophils % (auto) 64.4 %; Platelet Count 214 K/uL (130-400); RDW Coefficient of Variation 14.2 % (11.5-14.5); RDW Standard Deviation 45.2 fL (36.4-46.3); Red Blood Count 4.54 M/uL (4.2-5.4); White Blood Count 8.86 K/uL (4.8-10.8)
[2019-12-18 10:25] LABS: BUN Creatinine Ratio 19.3 (10-20); Calcium 9.3 mg/dl (8.5-10.1); Creatinine Clr Calc Pharmacy 89.7 ml/min; Est GFR (African American) 102.2; Est GFR (Non-African American) 88.1; Potassium 3.5 mmol/L (3.5-5.1)
--- NOTE | 2019-12-18 11:47 | Cardiology Progress Note ---
Date of Service December 18, 2019 Assessment & Plan (1) Non-ST elevation myocardial infarction (NSTEMI): (2) Hyperlipidemia: (3) CAD (coronary artery disease): (4) S/P coronary artery stent placement: (5) Benign essential hypertension: ASSESSMENT/PLAN: 1. NSTEMI: She underwent PCI of her LAD and diagonal. No further angina. Cardiac rehabilitation recommended. Continue dual anti-platelet therapy. Continue beta-marito and ZEUS-inhibitor. Nitroglycerin p.r.n. on discharge. 2. CAD s/p PCI (LAD and Diag): No further angina. Continue aspirin 81 mg daily indefinitely. Continue Brilinta for 1 year or more. Continue beta-marito. Can resume home dose of ZEUS-inhibitor on discharge. Recommend nitroglycerin as needed on discharge. 911 for angina that does not resolve within 5 minutes of nitroglycerin. 3. Dyslipidemia: LDL not optimized. She did not tolerate Crestor or pravastatin due to myalgias. She was agreeable to try Lipitor. Lipitor has been started by the admitting service. Continue as tolerated. 4. Hypertension: Blood pressure mildly elevated today. Continue beta-marito. Resume home dose of benazepril/HCTZ on discharge. Meds can be further adjusted as necessary as an outpatient. 5. Disposition: She was encouraged to ambulate in the hallway. If she tolerates ambulation and has no arrhythmia or other complication, she can be discharged late this afternoon or early this evening, 48 hours after presentation. Follow-up in the Cardiology office within the next 1-2 weeks which will be arranged by the cardiology office. Patient care has been communicated with Dr. Pinedo of the primary hospitalist service. Admission and Anticipated Discharge Date Admission Date: December 16, 2019 Subjective She feels very good today. She has not had any further chest discomfort. She denies shortness of breath, syncope, near-syncope, palpitations, or bleeding such as melena, hematochezia, hematuria. She has not had any significant edema today. She has tolerated ambulation in her room but has not yet ambulated in the hallway. Today she had questions regarding her medications and restrictions. We discussed the importance of dual anti-platelet therapy. It appears as though Brilinta will be expensive but samples will be provided to her today. Review of systems: As above. Physical Exam Physical Exam: Gen.: No acute distress. Alert and oriented. HEENT: Anicteric sclera. Neck: No JVD. Cardiac: No ventricular heave. Regular. No ectopy. Normal S1-S2. No murmurs, rubs, or gallops. Pulmonary: Clear to auscultation bilaterally without wheezes, rales, or rhonchi. Abdomen: Soft, nontender, nondistended, with normoactive bowel sounds. No bruits noted. Extremities: 2+ radial pulses bilaterally. 2+ posterior tibialis pulses bilaterally. No edema or cyanosis. Psychiatric: Affect appears appropriate. Results & Data ([facility]) Vital Signs (Past 12 Hours) Vital Signs Temp Pulse Pulse Resp BP BP Pulse Ox 12/18/19 08:00 36.5 C 60 18 144/83 H 96 12/18/19 03:16 36.5 C 64 16 148/74 H 97 12/18/19 00:00 62 Laboratory Results Laboratory Results - last 24 hr 12/17/19 12/17/19 12/17/19 10:02 11:31 12:01 WBC RBC Hgb Hct MCV MCH MCHC RDW Std Deviation RDW Coeff of Leonarda Plt Count MPV Immature Gran % (Auto) Neut % (Auto) Lymph % (Auto) Armstrong % (Auto) Eos % (Auto) Baso % (Auto) Neut # (Auto) Lymph # (Auto) Armstrong # (Auto) Eos # (Auto) Baso # (Auto) Immature Gran # (Auto) Activ Coag Time Kaolin 136 230 H 268 H Sodium Potassium Chloride Carbon Dioxide Anion Gap BUN Creatinine Est Cr Clr Drug Dosing Est GFR ( Amer) Est GFR (Non-Af Amer) BUN/Creatinine Ratio Glucose Calcium 12/18/19 12/18/19 09:47 09:47 WBC 8.86 RBC 4.54 Hgb 13.0 Hct 39.7 MCV 87.4 MCH 28.6 MCHC 32.7 RDW Std Deviation 45.2 RDW Coeff of Leonarda 14.2 Plt Count 214 MPV 8.7 Immature Gran % (Auto) 0.2 Neut % (Auto) 64.4 Lymph % (Auto) 26.6 Armstrong % (Auto) 6.5 Eos % (Auto) 2.0 Baso % (Auto) 0.3 Neut # (Auto) 5.69 Lymph # (Auto) 2.36 Armstrong # (Auto) 0.58 Eos # (Auto) 0.18 Baso # (Auto) 0.03 Immature Gran # (Auto) 0.02 Activ Coag Time Kaolin Sodium 142 Potassium 3.5 Chloride 110 H Carbon Dioxide 28 Anion Gap 5.0 BUN 14 Creatinine 0.71 Est Cr Clr Drug Dosing 89.7 Est GFR ( Amer) 102.2 Est GFR (Non-Af Amer) 88.1 BUN/Creatinine Ratio 19.3 Glucose 99 Calcium 9.3 Diagnostic Findings Telemetry personally reviewed: Sinus rhythm. No arrhythmia. Cardiac catheterization 12/17/2019: Coronary angiography: 1. LMCA: No significant CAD. 2. LAD: Proximal LAD 30 to 40%. Mid LAD 99% stenosis with ANKUR II flow. Large D1 with ostial to proximal 80 to 90% stenosis. 3. Circumflex: The circumflex is a large-caliber vessel proximally. Mid circumflex 30%. Distally, the circumflex extends as a small to medium caliber vessel. Distal circumflex 70 to 80% (small caliber). Large OM1 proximal 30%. ANKUR-3 flow throughout. 4. Right coronary artery: RCA is large and dominant. Proximal RCA 40 to 50% smooth narrowing. Mid RCA 30%. Distal RCA diffuse 20%. Large PDA and medium caliber PL branch without significant CAD. Left heart catheterization: 1. Left ventriculography was not performed. 2. No significant aortic stenosis. Peak to peak gradient across the aortic valve was 0 mmHg. 3. Normal LVEDP. LVEDP 10 mmHg. PCI Summary: 1. Successful PCI of mid LAD with single drug-eluting stent (3.0 x 23 mm Xience Bri). 2. Successful PCI of ostial/proximal first diagonal (2.25 x 15 mm Xience Bri; takeoff of diagonal just proximal to proximal edge of initial stent). ECG pending. Echo 12/17/2019: Normal LV size with low-normal systolic function. EF 50-55%. Akinesis of the apex, distal anterior, distal inferior, distal anterolateral, and distal inferoseptal wall segments. Hypokinesis of the mid anteroseptum. Mild LVH. Mild MR. Normal RVSP. Medications Administered Current Inpatient Medications Acetaminophen (Tylenol) 1,000 mg PO Q6H PRN PRN Reason: back pain Stop: 01/16/20 21:06 Last Admin: 12/17/19 21:22 Dose: 1,000 mg Documented by: Al Hydrox/Mg Hydrox/Simethicone (Maalox) 15 ml PO Q4H PRN PRN Reason: Dyspepsia Stop: 01/15/20 18:52 Artificial Tears (Artificial Tears) 1 drops OP BID PRN PRN Reason: DRY EYE Stop: 01/15/20 18:57 Aspirin (Ecotrin Ectab) 81 mg PO QAM [facility] Stop: 01/16/20 08:59 Last Admin: 12/18/19 08:25 Dose: 81 mg Documented by: Atorvastatin Calcium (Lipitor) 40 mg PO QPM [facility] Stop: 01/15/20 20:59 Last Admin: 12/17/19 21:23 Dose: 40 mg Documented by: Cetirizine HCl (Zyrtec) 10 mg PO DAILY [facility] Stop: 01/16/20 08:59 Last Admin: 12/18/19 08:27 Dose: 10 mg Documented by: Levothyroxine Sodium (Synthroid) 25 mcg PO DAILYBB [facility] Stop: 01/16/20 06:29 Last Admin: 12/18/19 05:44 Dose: 25 mcg Documented by: Lisinopril (Zestril) 10 mg PO QAM [facility] Stop: 01/16/20 08:59 Last Admin: 12/18/19 08:27 Dose: 10 mg Documented by: Magnesium Hydroxide (Milk Of Magnesia) 30 ml PO Q12H PRN PRN Reason: Constipation Stop: 01/15/20 18:52 Metoprolol Tartrate (Lopressor) 12.5 mg PO BID [facility] Stop: 01/16/20 08:59 Last Admin: 12/18/19 08:26 Dose: 12.5 mg Documented by: Morphine Sulfate (Morphine Sulfate) 2 mg IV Q30M PRN PRN Reason: Chest Pain Stop: 12/31/19 01:26 Last Admin: 12/17/19 13:05 Dose: 2 mg Documented by: Nitroglycerin (Nitrostat) 0.4 mg SL UD PRN PRN Reason: Chest Pain Stop: 01/15/20 14:49 Ondansetron HCl (Zofran) 4 mg IV Q6H PRN PRN Reason: Nausea Stop: 01/15/20 18:52 Pantoprazole Sodium (Protonix) 40 mg PO QAM [facility] Stop: 01/16/20 08:59 Last Admin: 12/18/19 08:27 Dose: 40 mg Documented by: Polyethylene Glycol (Miralax Powder Packet) 17 gm PO DAILY PRN PRN Reason: Constipation Stop: 01/15/20 18:52 Ticagrelor (Brilinta) 90 mg PO BID [facility] Stop: 01/16/20 20:59 Last Admin: 12/18/19 08:25 Dose: 90 mg Documented by: PG Care Time/CCT Total # of Minutes Spent Total Time Spent with Patient: Total time spent is greater than 50% in coordination of care (as documented) at patient's floor/unit and/or counseling patient: Coding Level of Care Code 81030 Subseq Hosp Care Lvl 3 Diagnoses Non-ST elevation myocardial infarction (NSTEMI) I21.4 Hyperlipidemia E78.5 CAD (coronary artery disease) I25.10 S/P coronary artery stent placement Z95.5 Benign essential hypertension I10
[2019-12-18] MEDS: ACETAMINOPHEN 500 MG TAB PO PRN (11:56)
--- NOTE | 2019-12-18 13:05 | Discharge Summary ---
Date of Service December 18, 2019 Admission HPI Per Admitting Provider Gina Fisher is a 69 year old female who presents to the ER via EMS due to abnormal EKG and chest pain at her PCP office. Her symptoms started 2 days ago on Saturday night with pain in both arms, neck, chest and back. She felt like she had strained something from swimming the day before. However the pain was worse on exertion and relieved with rest. Lasted for approximately 5 minutes. Severity 5-6/10. This was the worst time she had her chest pain. It occurred again throughout the night, at rest, lasting for a few minutes each time. No associated diaphoresis, shortness of breath or nausea. Yesterday morning again was occuring on exertion and she took advil and acetaminophen which appeared to improve her symptoms. Last time she had any chest pain was 7am this morning which she took some Advil for this. Some of her pain is worse on palpation. She called her PCP office for an appointment to get something to help with the presumed MSK pain as she was preparing for a camping trip. In her PCP office she had an abnormal EKG showing anterolateral TWI and was given ASA 325mg chew. Since 7am this morning she has been chest pain free and her worst episode was on Saturday. In the ER troponin was elevated therefore she was started on low dose IV heparin drip with bolus. No diabetes, former smoker (4 pack-year history), stopped 45 years ago. Significant family history with Father - in 40s from [place], brother - 45 when he first had [place]. Principal Diagnosis Pt states she has had no further chest pain. No SOB. She has been walking the halls without issue. Tolerating PO without issue. Pt denies fever, abd pain, n/v/c/d, LE pain or swelling. Discharge Exam Constitutional WD/WN, vitals as above Eyes normal visual bran by confrontation and + anicteric sclerae Neck normal visual inspection and trachea midline Respiratory normal respiratory effort, lungs clear to auscultation Cardiovascular Rate/Rhythm: regular rate and regular rhythm Gastrointestinal (Abdomen) Inspection/Auscultation: abdomen not distended Percussion/Palpation: abdomen soft; abdomen nontender Musculoskeletal Head/Neck/Chest: normocephalic and head atraumatic neg for LE swelling Skin no rashes, warm and dry Neurologic awake; not confused Speech / Cognition: normal speech Psychiatric A+Ox3, euthymic affect Discharge Data Allergies Allergy/AdvReac Type Severity Reaction Status Date / Time Penicillins Allergy Unknown Hives Verified 12/16/19 15:43 Consultations 12/16/19 15:56 ED Decision to Admit Stat 12/17/19 00:42 Consult Cardiology Routine 12/17/19 12:32 Consult Cardiac Rehabilitation Routine Procedures Performed Operation Date: 12/17/19 09:15 Actual Procedures p Cath, Left with Cors and Vent - Armando Moe MD s Cineradiography w/Routine Exam - Armando Moe MD s Drug Eluting Stent SGl Vessel - Iam Doherty MD s Drug Eluting Stent each ADDTL Vessel - Iam Doherty MD Ordered Studies 12/17/19 09:02 CL Cath Imgs for PACS use only Routine Hospital Course (1) Non-ST elevation myocardial infarction (NSTEMI): ASA, Metoprolol, Lisinopril, Atorvastatin. Hold off plavix unless she starts having more chest pain in case she requires CT surgery. Nitroglycerin first line or morphine second line PRN for chest pain Heparin low dose IV drip with bolus Serial troponins, peaked at 3.3 and then trended down Cath on 12/15 with LAD stent placed by Dr. Doherty Plans for aspirin 81mg, brilinta Cost per CM was quite high, cardiology to provide samples A1c 5.7 LDL 136 which is too high in the setting of [place], HDL 38 which is too low, TG 162 Statin, diet Advised CoQ10 for hx of statin intolerance due to LE cramping/spasms (2) Benign essential hypertension: Hold benazepril/HCTZ in favor to optimize cardiac medication. Swelling resolved during admission with HCTZ combo held, may need to go back on diuretic given chronic leg swelling if returns (see below) Medication changes as noted (3) Hypothyroidism: Due for repeat TSH but innapropriate in setting of acute [place] and only on small dose therefore will hold off repeating TSH and continue levothyroxine 25 mcg PO daily (4) Morbid obesity: Recommend cardiac rehabilitation after discharge Screen for KAPIL as outpt - not discussed on admission (5) Acid reflux disease: Switch omeprazole for pantoprazole as per hospital formulary (6) Bilateral leg edema: Patient reports chronic, worse in summer and hot weather. No worse than what it has been. Suspect represents venous insufficiency rather than right sided heart failure. Given chronicity over many year - DVT highly unlikely despite left > right leg swelling therefore no need for US venous doppler at present time. (7) Allergic rhinitis: Cetirizine 10mg PO daily (8) DVT prophylaxis: Heparin IV drip as above during admission Total Time Total Time Spent Total Time Spent (In Minutes): >30 Total Time Includes: Examination of the Patient, Discharge Planning, Medication Reconciliation, Communication With Other Providers and Other Discharge Plan Discharge Items Patient Disposition: Home - Self-Care Reason For Visit: NSTEMI Discharge Diagnosis: NSTEMI Activity: As commented below Activity Comment: As per cardiology Non-emergency contact: Primary Care Provider and Conference Planning Manager Call non-emergency contact if: you have any medication questions, your symptoms worsen and your pain is not controlled Follow-up/Referrals: Armando Moe MD [Physician] - 12/25/19 4:00 pm () Sujey Starr MD [Primary Care Provider] - 12/24/19 11:30 am (Please, follow up with Dr. Starr on December 23 at 11:30 am. *If you need to change this appointment, call the office at [phone]. We are arranging for you to have a home sleep study through [facility]. The equipment will be mailed to your home and the kit will include easy to follow instructions. The results will be sent to Dr. Starr.) Diet: Heart Healthy Addtl Attending Provider Instructions: You will need to have a sleep study to evaluate for possible sleep apnea. Case management is arranging this for you. It will depend on insurance coverage if you can have this done in your home vs going to a sleep study center. You had mentioned that you needed labs for your primary care visit that was scheduled prior to your heart attack. You should check with your PCP and see if you still need those labs checked based on what was checked here. Most likely you do not need further blood work done, but check with their office to be sure. You mentioned that you have had issues with leg cramping/spasms when using statins (cholesterol medication) in the past. It is important that you continue to take the cholesterol medication due to your heart attack. You should start taking CoQ10 300mg per day. This will help to prevent the cramping/spasms that some people get with statin use. CoQ10 comes in 2 forms: ubiquinOL and ubiquinONE. Ubiquinol is the active and best form to take as it is already ready for your body to use. It will absorb better than ubiquinone. Due to this, ubiquinol can be a bit more expensive than ubiquinone, but it will be more effective for you to take the more expensive version. You can find this at most [employer], [employer], [employer], etc. You should take this with some sort of fat for best absorption: dairy products, olive oil, avocados will work for this. Pending Studies at Discharge: No Stand-Alone Forms: My [facility] Shopping Mail, Smoking Cessation Medications and DC Order Prescriptions: New atorvastatin 40 mg Tablet 40 mg PO QPM Qty: 30 RF: 0 lisinopril 10 mg Tablet 10 mg PO QAM Qty: 30 RF: 0 metoprolol tartrate 25 mg Tablet 12.5 mg PO BID Qty: 60 RF: 0 Brilinta 90 mg Tablet 90 mg PO BID Qty: 60 RF: 0 Continued omeprazole 10 mg capsule,delayed release(DR/EC) 10 mg PO QAM Qty: 90 RF: 3 clobetasol 0.05 % solution 1 applic TOPICAL BID PRN (Reason: Rash) Qty: 50 RF: 3 cetirizine [Zyrtec] 10 mg Tablet 10 mg PO DAILY RF: 0 nystatin-triamcinolone 100,000-0.1 unit/g-% Cream 1 applic TOPICAL BID PRN (Reason: Skin Irritation) RF: 0 aspirin 81 mg tablet,delayed release (DR/EC) 81 mg PO QAM RF: 0 levothyroxine 25 mcg tablet 25 mcg PO QAM RF: 0 Systane (PF) 0.4-0.3 % dropperette 1 drp OPHTHALMIC (EYE) BID PRN (Reason: Dry Eye(S)) RF: 0 cyclobenzaprine 10 mg Tablet 10 mg PO HS RF: 0 Discontinued benazepril-hydrochlorothiazide [Lotensin HCT] 10-12.5 mg tablet 1 tab PO QAM Qty: 90 RF: 3 Discharge Orders: Discharge Order (Routine); Ordered 12/18/19 Ordered By: Evelyne A Pinedo Admission Data Admit Date/Time: 12/16/19 17:43 Attending Provider: Evelyne Pinedo Admit Provider: Parmjit Crenshaw Primary Care Provider: Sujey Starr Other Providers: Parmjit Crenshaw ; Armando Moe Other Interventions: Discharge Summary Assessment (RN) Last Done: 12/18/19 14:23 Coding Level of Care Code D/C Day Management >30 mins Diagnoses Non-ST elevation myocardial infarction (NSTEMI) I21.4 Benign essential hypertension I10 Hypothyroidism E03.9 Morbid obesity E66.01 Acid reflux disease K21.9 Bilateral leg edema R60.0 Allergic rhinitis J30.9 DVT prophylaxis Z29.9
--- NOTE | 2019-12-19 07:26 | Electrocardiogram Report ---
Test Reason : Blood Pressure : / mmHG Vent. Rate : 064 BPM Atrial Rate : 064 BPM P-R Int : 152 ms QRS Dur : 092 ms QT Int : 472 ms P-R-T Axes : 046 033 122 degrees QTc Int : 486 ms Normal sinus rhythm T wave abnormality, consider anterior ischemia Prolonged QT Abnormal ECG When compared with ECG of 17-DEC-2019 12:41, No significant change was found Confirmed by Armando Moe ([id number]) on 12/19/2019 7:26:20 AM Referred By: REFERRED SELF Confirmed By:Armando Moe
== END 2019-12-18 17:56 | disposition home or self-care (01) | DRG 247 ==
LOC: ED 14:41 → 2S 17:43 → SUATTDRO 17:43 → 2S 18:11